=== PATIENT | male | born 1980 | race Two or more races ===

== ENCOUNTER 2020-04-01 15:40 | Outpatient (REF) | payer OTHER, SELFPAY | END 2020-04-01 15:41 | disposition home or self-care (01) | LOC: HO.LAB 15:40 | PROVIDERS: Visit Provider Internal Medicine | DX: Z20.828 Contact with and (suspected) exposure to other viral communicable diseases (principal) | CPT/HCPCS: C9803; U0003 ==

== ENCOUNTER 2021-02-28 09:36 | Emergency (ER) | payer OTHER, SELFPAY ==
[2021-02-28 11:03] VITALS: BP 127/83; PULSE 89; RESP 18; TEMP 36.1; O2SAT 98; BMI 28.2
--- NOTE | 2021-02-28 11:42 | ED.GENADULT ---
HPI - General Adult General Chief complaint: General Medical Stated complaint: face numbness/head pain Time Seen by Provider: 02/28/21 11:32 Source: patient History of Present Illness HPI narrative: Patient complaining of right facial numbness over the past several days with facial weakness starting yesterday. She denies extremity symptoms. No vision changes He complains of some posterior headache. No fevers or chills. No tick bites or exposures or high risk that he is aware of. 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 No prior history of similar issues. He looked it up online and is concerned for Sanders's palsy versus stroke. Related Data Previous Rx's Medication Instructions Recorded prednisone 20 mg tablet 40 mg PO DAILY #14 tab 02/28/21 valacyclovir 1 gram tablet 1,000 mg PO TID #21 tab 02/28/21 Allergies Allergy/AdvReac Type Severity Reaction Status Date / Time No Known Allergies Allergy Unverified 12/31/19 19:27 [No Known Allergies*] Review of Systems Constitutional: Constitutional: Denies fever(s) Eyes: Comments: No eye pain or vision changes ENT: Comments: Facial numbness as mentioned above Cardiovascular: Comments: No chest pain or palpitations Respiratory: Comments: No cough shortness of breath Gastrointestinal: Comments: No abdominal pain or nausea vomiting or diarrhea Musculoskeletal: Comments: No musculoskeletal injury Integumentary/Breasts: Comments: No rash. No recent tick bite. Neurologic: Comments: Headache. Facial numbness and weakness. No extremity weakness. No balance issues. Physical Exam Vital Signs: Vital Signs: Last Vital Signs Temp 97 F 02/28/21 11:03 Pulse 89 02/28/21 11:03 Resp 18 02/28/21 11:03 BP 127/83 02/28/21 11:03 Pulse Ox 98 02/28/21 11:03 Body Mass Index 28.2 Const: Other: Awake alert no acute distress HENMT: Other: Normal cephalic atraumatic. No swelling erythema or induration. No dental tenderness Eyes: Other: Pupils equal round reactive to light. No nystagmus. Vision grossly intact Neck: Other: No meningismus Resp: Other: Clear and equal bilaterally without wheezes rales or rhonchi Cardio: Other: Regular rate and rhythm without murmurs rubs or gallops GI: Other: Soft nontender nondistended Skin: Other: No rash noted Neuro: Other: Awake and alert no acute distress. Cranial nerve 7 palsy with facial droop. Forehead is involved on the right side. He is able to close the right eyelid but with effort. Remainder of cranial nerves are normal. 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 Treat with prednisone. General labs ordered including Lyme titer Will treat empirically with steroids and acyclovir for discharge home. Follow-up with PCP Will alert if Lyme titers are abnormal Discharge Plan Discharge Clinical Impression: Sanders palsy Patient Disposition: Home, Self-Care Instructions: Sanders Palsy (ED) Prescriptions: New prednisone 20 mg tablet 40 mg PO DAILY Qty: 14 RF: 0 valacyclovir 1 gram tablet 1,000 mg PO TID Qty: 21 RF: 0 Stand Alone Forms: Work/School Release
[2021-02-28 12:00] VITALS: BP 115/77; PULSE 83; RESP 16; TEMP 36.7; O2SAT 95
[2021-02-28] MEDS: predniSONE 20 MG TABLET 60 MG PO (12:02)
[2021-02-28 12:14] LABS: MANUAL DIFF FLAG NO
[2021-02-28 12:17] LABS: Basophils Percent Auto 0.3 % (0-2); Eosinophils Absolute Auto 0.2 X10*3/uL (0.0-0.4); Eosinophils Percent Auto 2.3 % (0-4); Hemoglobin 13.9 g/dl (14.0-18.0); Imm Gran Abs Auto 0.03 X10*3/uL (0.00-0.03); Imm Gran Pct Auto 0.3 % (0.0-0.4); Lymphocytes Absolute Auto 3.4 X10*3/uL (1.2-4.9); Lymphocytes Percent Auto 38.9 % (20-40); Mean Corpuscular HGB Conc 34.8 g/dl (31.0-36.0); Mean Corpuscular Hemoglobin 29.4 pg (27.0-33.0); Mean Corpuscular Volume 84.6 fL (80.0-98.0); Mean Platelet Volume 9.1 fL (9.4-12.4); Monocytes Absolute Auto 0.6 X10*3/uL (0.1-1.2); Monocytes Percent Auto 6.8 % (2-11); Neutrophils Absolute Auto 4.4 x10*3/uL (2.0-8.3); Neutrophils Percent Auto 51.4 % (45-73); Platelet Count 353 X10*3/uL (160-400); Red Blood Count 4.73 X10*6/uL (4.60-5.80); Red Cell Distribution Width 13.4 % (11.0-16.0); White Blood Count 8.6 X10*3/uL (4.8-10.8)
[2021-02-28 12:34] LABS: Alanine Aminotransferase 23 U/L (0-40); Albumin Level 4.1 g/dL (3.5-5.0); Alkaline Phosphatase 174 U/L (39-117); Anion Gap 10 (12-20); Aspartate Amino Transferase 16 U/L (5-37); Bilirubin Total 0.2 mg/dL (0.0-1.0); Blood Urea Nitrogen 12 mg/dL (9-16); Calcium 8.9 mg/dL (8.4-10.2); Carbon Dioxide 23 mmol/L (22-29); Chloride 108 mmol/L (96-108); Creatinine Clr Calc Pharmacy 128.3; Estimated Glomerular Filt Rate > 60; Glucose Random 99 mg/dL (60-115); Potassium 4.2 mmol/L (3.3-5.1); Sodium 137 mmol/L (135-145); Total Protein 7.1 g/dL (6.5-8.0)
[2021-03-01 13:07] LABS: Lyme Abs Screen <0.90 index
== END 2021-02-28 12:07 | disposition home or self-care (01) ==
LOC: HO.ED 11:57
PROVIDERS: Emergency Provider Emergency Medicine
DX: G51.0 Bell's palsy (principal); R20.0 Anesthesia of skin; Z79.899 Other long term (current) drug therapy
CPT/HCPCS: 36415; 80053; 85025; 86617; 86618; 99283; 99284

== ENCOUNTER 2022-02-13 07:29 | Emergency (ER) | payer SELFPAY ==
--- NOTE | ~2022-02-13 | XR_ITS ---
EXAMINATION: XR HAND, RIGHT CLINICAL INFORMATION: Fifth digit crush injury. COMPARISON: None TECHNIQUE: PA, lateral, and oblique views of the right hand. An indicator arrow points to the fifth digit. FINDINGS: The bones and soft tissues are normal. No fracture. Alignment is anatomic. Joint spaces are maintained. No erosions or soft tissue calcifications. XR/XR hand RT min 3V IMPRESSION: No acute fracture. Specifically, the fifth digit is intact.
[2022-02-13 07:30] VITALS: BP 127/84; PULSE 98; RESP 17; TEMP 36.6; O2SAT 98; BMI 27.4
--- NOTE | 2022-02-13 08:05 | ED_ITS ---
HPI - Wound/Laceration General Chief Complaint: Wound/Laceration Stated Complaint: broken finger, R hand Time Seen by Provider: 02/13/22 08:04 Source: patient Mode of arrival: ambulatory History of Present Illness HPI narrative: 41-year-old male with no significant past medical history presenting to the ED complaining right hand laceration s/p crush injury while working on a garage door at 06:00. States was working a neri system when garage door fell landing on hand. Denies numbness, tingling, weakness, injury to other area. Tetanus up-to-date Onset (ago): hour(s) Related Data Previous Rx's Medication Instructions Recorded prednisone 20 mg tablet 40 mg PO DAILY #14 tabs 02/28/21 valacyclovir 1 gram tablet 1,000 mg PO TID #21 tabs 02/28/21 Allergies Allergy/AdvReac Type Severity Reaction Status Date / Time No Known Allergies Allergy Unverified 12/31/19 19:27 [No Known Allergies*] Review of Systems Review of Systems: Constitutional:No Fever, No Chills ENT/Mouth: No Ear Pain, No Nasal Congestion, No sore throat, No Rhinorrhea, No Swallowing Difficulty Cardiovascular: No Chest Pain, No SOB Respiratory: No Cough, No Sputum Gastrointestinal: No Nausea, No Vomiting, No Diarrhea, No Constipation, No A bdominal pain Genitourinary: No Dysuria, No Urinary Frequency, No Hematuria, No Flank Pain Musculoskeletal: No joint pain, No Myalgias, No Joint Swelling Skin: + Skin Lesions, No rash Neuro: No Weakness, No Numbness, No Paresthesias Yes all other systems are reviewed and are negative Constitutional: Constitutional: Reports as per HPI Neurologic: Denies Sensory deficit (Neuro) [facility] Past Medical History Attestation statement: The following information was validated with the patient. Social History Social History Patient Tobacco Use Status: Current everyday Tobacco user Advance Directives: No Advance Directives Information Provided: No Physical Exam Vital Signs: Vital Signs: Last Vital Signs Temp 98 F 02/13/22 07:30 Pulse 98 02/13/22 07:30 Resp 17 02/13/22 07:30 BP 127/84 02/13/22 07:30 Pulse Ox 98 02/13/22 07:30 BMI result Body Mass Index 27.4 Const: General: cooperative, healthy appearing and no acute distress Orientation/consciousness: patient oriented x3 Limitations: no limitations HEENT: Head: Yes normal to inspection and Yes atraumatic Ears: hearing grossly normal bilaterally General nose exam: Normal external nose present Face and sinus: Yes normal facial exam Eyes: General: appearance normal, both eyes and all related structures EOM: EOMs intact bilaterally Neck: Neck: Yes normal visual inspection and Yes no meningeal signs Resp: Effort & Inspection: normal respiratory effort and no respiratory distress Auscultation: clear to auscultation bilaterally Cardio: Rate: regular rate Heart sounds: S1 normal heart sound present and S2 normal heart sound present Skin: Other: Please refer to image above. Superficial laceration noted to 4th digit palmar aspect and 3.5cm irregular deep laceration noted to 5th digit palmar aspect overlying PIP. Bleeding controlled. No underlying structures visible. Full range of motion intact to all digits. Sensation intact to light touch Rashes: no rashes Neuro: General: patient oriented x3, tone normal and no meningeal signs Gait exam (Neuro): Normal gait present Sensory Exam: No Sensory deficit (Neuro) MDM - Wound/Laceration MDM Narrative Medical decision making narrative: 41-year-old male with no significant past medical history presenting to the ED complaining right hand laceration s/p crush injury while working on a garage door at 06:00. On exam vital signs stable, NAD, nontoxic appearing, physical exam as above, please refer to image. No evidence of infection at this time. No evidence of tendon rupture. Plan: X-ray to rule fracture hyper laceration Differential Diagnosis Differential diagnosis: Likely laceration Medical Records Attestation: I reviewed the patient's medical records. Lab Data Attestation: I reviewed the patient's lab results. Procedures Laceration Laceration 1: Site: hand Side (If applicable): right Size (cm): 3.5 Description: irregular Depth: simple, single layer Local Anesthetic: lidocaine 1% Amount of anesthesia used (mL): 3 Pre-repair: wound explored, irrigated extensively and deep structures intact Skin layer closed with: nylon Size (cm): 4-0 Number of sutures: 9 Technique: simple, interrupted Discharge Plan Discharge Clinical Impression: Hand laceration Patient Disposition: Home, Self-Care Instructions: Laceration (ED) Additional Instructions: Your wounds were repaired today in the emergency department. Keep dry and clean. You need to return to any emergency department or urgent care in 7-10 days for suture removal Apply bacitracin and or Neosporin daily Once sutures are removed apply anti scar cream like Mederma If area begins look infected, is red, there is drainage, streaking, or you have fever please return to the emergency department Prescriptions: No Action prednisone 20 mg tablet 40 mg PO DAILY Qty: 14 0RF valacyclovir 1 gram tablet 1,000 mg PO TID Qty: 21 0RF Referrals: ED Physician,Generic [Physician] - 1 week (7-10 days to have sutures removed) Stand Alone Forms: Work/School Release
[2022-02-13] MEDS: Lidocaine HCl 1 % MPF 2 ML VIAL INFILTRATI ×2 (08:58)
[2022-02-13] MEDS: oxyCODONE HCl Immed Release 5 MG TABLET PO (08:58)
== END 2022-02-13 10:41 | disposition home or self-care (01) ==
PROVIDERS: Emergency Provider Emergency Medicine
DX: S61.411A Laceration without foreign body of right hand, initial encounter (principal); W23.0XXA Caught, crushed, jammed, or pinched between moving objects, initial encounter; Y93.89 Activity, other specified; Y92.015 Private garage of single-family (private) house as the place of occurrence of the external cause; Y99.8 Other external cause status
CPT/HCPCS: 12042; 73130; 99283; 99284

== ENCOUNTER 2022-02-20 06:33 | Emergency (ER) | payer SELFPAY ==
[2022-02-20 06:57] VITALS: BP 109/74; PULSE 73; RESP 16; TEMP 36.2; O2SAT 97; BMI 27.4
--- NOTE | 2022-02-20 08:10 | ED_ITS ---
HPI - General Adult General Chief complaint: General Medical Stated complaint: suture removal Time Seen by Provider: 02/20/22 07:32 History of Present Illness HPI narrative: Patient is a 42-year-old male presented today with having laceration to the left pinky near the proximal IP joint approximately 1 week ago. Told to come in today for suture removal. Patient denies any fever chills any systemic complaints. Patient is from home. Related Data Previous Rx's Medication Instructions Recorded prednisone 20 mg tablet 40 mg PO DAILY #14 tabs 02/28/21 valacyclovir 1 gram tablet 1,000 mg PO TID #21 tabs 02/28/21 Allergies Allergy/AdvReac Type Severity Reaction Status Date / Time No Known Allergies Allergy Unverified 12/31/19 19:27 [No Known Allergies*] Review of Systems Review of Systems: No fever no chills no chest pain or shortness breath no nausea no vomiting no redness Yes all other systems are reviewed and are negative [facility] Past Medical History Attestation statement: The following information was validated with the patient. Social History Social History Patient Tobacco Use Status: Current everyday Tobacco user Advance Directives: No Advance Directives Information Provided: Yes Physical Exam ED Vital Signs: Vital Signs - 24 hr 02/20/22 06:57 Temperature 97.1 F Pulse Rate 73 Respiratory Rate 16 Blood Pressure 109/74 Pulse Oximetry 97 Oxygen Delivery Method Room Air BMI result Body Mass Index 27.4 Appearance: Alert. Oriented X3. No acute distress. Eyes: Pupils equal, round and reactive to light. ENT: Pharynx normal. Neck: Normal inspection. Neck supple. No lymph nodes noted. No crepitus CVS: Normal heart rate and rhythm. Pulses normal. Normal S1 and S2 Respiratory: No respiratory distress. Breath sounds normal. No Wheezing. No rales Abdomen: Soft and nontender. No rigidity. No distention. good BS x4 Skin: Skin warm and dry. Normal skin color. Normal skin turgor. Extremities: No lower extremity edema. Neurovascular intact to all extremities. No Lacerations. No Rash Neuro: Oriented X 3. No motor deficit. No sensory deficit. Moving all extermities. No slurred speech Examination of the left hand showed the wound to be intact. The suture aligned. There is no redness there is no discharge. Medical Decision Making MDM Narrative Medical decision making narrative: Sutures were removed. There is no complications. Patient is to be discharged home Discharge Plan Discharge Clinical Impression: Visit for suture removal Patient Disposition: Home, Self-Care Instructions: Stitches Removal (ED) Prescriptions: No Action prednisone 20 mg tablet 40 mg PO DAILY Qty: 14 0RF valacyclovir 1 gram tablet 1,000 mg PO TID Qty: 21 0RF Referrals: Physician,None [Primary Care Provider] - (Follow-up as needed. Please keep the wounds clean.)
== END 2022-02-20 08:30 | disposition home or self-care (01) ==
PROVIDERS: Emergency Provider Emergency Medicine Emergency Medical Services
DX: Z48.02 Encounter for removal of sutures (principal); S61.217D Laceration without foreign body of left little finger without damage to nail, subsequent encounter; X58.XXXD Exposure to other specified factors, subsequent encounter
CPT/HCPCS: 99281; 99283

== ENCOUNTER 2022-11-20 06:28 | Outpatient (REF) | payer OTHER, SELFPAY ==
[2022-11-20 06:39] LABS: MANUAL DIFF FLAG NO
[2022-11-20 07:12] LABS: Basophils Percent Auto 0.5 % (0-2); Eosinophils Absolute Auto 0.2 X10*3/uL (0.0-0.4); Eosinophils Percent Auto 2.4 % (0-4); Hematocrit 45.5 % (42.0-52.0); Hemoglobin 15.5 g/dl (14.0-18.0); Imm Gran Abs Auto 0.05 X10*3/uL (0.00-0.03); Imm Gran Pct Auto 0.6 % (0.0-0.4); Lymphocytes Absolute Auto 2.4 X10*3/uL (1.2-4.9); Lymphocytes Percent Auto 29.9 % (20-40); Mean Corpuscular HGB Conc 34.1 g/dl (31.0-36.0); Mean Corpuscular Hemoglobin 28.4 pg (27.0-33.0); Mean Corpuscular Volume 83.5 fL (80.0-98.0); Mean Platelet Volume 8.6 fL (9.4-12.4); Monocytes Absolute Auto 0.5 X10*3/uL (0.1-1.2); Monocytes Percent Auto 6.7 % (2-11); Neutrophils Absolute Auto 4.7 x10*3/uL (2.0-8.3); Neutrophils Percent Auto 59.9 % (45-73); Platelet Count 337 X10*3/uL (160-400); Red Blood Count 5.45 X10*6/uL (4.60-5.80); Red Cell Distribution Width 13.2 % (11.0-16.0); White Blood Count 7.9 X10*3/uL (4.8-10.8)
[2022-11-20 07:48] LABS: Alanine Aminotransferase 19 U/L (0-40); Albumin Level 4.2 g/dL (3.5-5.0); Alkaline Phosphatase 181 U/L (39-117); Anion Gap 12 (12-20); Aspartate Amino Transferase 15 U/L (5-37); Bilirubin Total 0.4 mg/dL (0.0-1.0); Blood Urea Nitrogen 10 mg/dL (9-16); Calcium 9.2 mg/dL (8.4-10.2); Carbon Dioxide 25 mmol/L (22-29); Chloride 109 mmol/L (96-108); Cholesterol 235 mg/dL; Estimated Glomerular Filt Rate > 60; Glucose Random 107 mg/dL (60-115); HDL Cholesterol 31 mg/dL; LDL Cholesterol Calculated 158 mg/dl; Potassium 4.5 mmol/L (3.3-5.1); Sodium 141 mmol/L (135-145); Total Protein 7.9 g/dL (6.5-8.0); Triglycerides 233 mg/dL
[2022-11-20 08:05] LABS: Thyroid Stimulating Hormone 1.27 uIU/mL (0.32-4.0)
[2022-11-22 15:47] LABS: HCV Log PCR <1.18 NOT DETECTED Log IU/mL (NOT DETECTED); HepC Viral Load <15 NOT DETECTED IU/mL (NOT DETECTED)
== END 2022-11-20 06:29 | disposition home or self-care (01) ==
LOC: HO.LAB 06:28
PROVIDERS: PCP Internal Medicine; Visit Provider Internal Medicine
DX: Z00.00 Encounter for general adult medical examination without abnormal findings (principal); R63.5 Abnormal weight gain; R10.11 Right upper quadrant pain; M51.16 Intervertebral disc disorders with radiculopathy, lumbar region; K21.9 Gastro-esophageal reflux disease without esophagitis; B18.2 Chronic viral hepatitis C; F17.200 Nicotine dependence, unspecified, uncomplicated
CPT/HCPCS: 36415; 80053; 80061; 84443; 85025; 87522

== ENCOUNTER 2022-11-23 07:34 | Outpatient (REF) | payer OTHER, SELFPAY ==
--- NOTE | ~2022-11-23 | US_ITS ---
EXAMINATION: US ABDOMEN COMPLETE CLINICAL INFORMATION: Right upper quadrant pain. COMPARISON: Ultrasound abdomen 09/30/2019. TECHNIQUE: Real-time imaging of the abdominal viscera. FINDINGS: PANCREAS: The pancreas could not be evaluated secondary to overlying bowel gas. ABDOMINAL AORTA: The proximal, mid, and distal segments are normal in caliber. INFERIOR VENA CAVA: Visualized portions are normal. LIVER: The liver is enlarged with increased echogenicity consistent with hepatic steatosis. Focal areas of fatty sparing are noted. The liver contour is normal. No suspicious focal hepatic lesion. There is no intrahepatic biliary duct dilatation seen. GALLBLADDER: Normal. The gallbladder is physiologically distended without evidence of stones, sludge, polyps, wall thickening or pericholecystic fluid. COMMON BILE DUCT: Normal in caliber measuring 0.2 cm in diameter. RIGHT KIDNEY: Normal. No hydronephrosis. No renal calculi or focal parenchymal lesions. The kidney measures 10.1 cm in maximum dimension. LEFT KIDNEY: Normal. No hydronephrosis. No renal calculi or focal parenchymal lesions. The kidney measures 11.1 cm in maximum dimension. SPLEEN: Normal. The spleen measures 7.3 cm in maximum dimension. FREE FLUID: None. US/US abdomen complete IMPRESSION: Enlarged fatty liver.
== END 2022-11-23 07:35 | disposition home or self-care (01) ==
LOC: HO.US 07:34
PROVIDERS: Visit Provider Internal Medicine
DX: R10.11 Right upper quadrant pain (principal); B18.2 Chronic viral hepatitis C
CPT/HCPCS: 76700

== ENCOUNTER 2022-12-31 16:39 | Outpatient (REF) | payer OTHER, SELFPAY ==
[2023-01-01 04:49] LABS: Syphilis Screen Reactive (Nonreactive)
[2023-01-01 05:04] LABS: HIV AB/AG Nonreactive (Nonreactive); HIV Num 1 0.09 S/CO (0.00-0.99)
[2023-01-01 11:14] LABS: CT PCR NOT DETECTED (Not Detect.); NG PCR NOT DETECTED (Not Detect.)
[2023-01-06 14:42] LABS: RPR Quantitative Non-Reactive (Nonreactive); T.Pallidum Particle Agg Test Reactive (Nonreactive)
== END 2022-12-31 16:40 | disposition home or self-care (01) ==
LOC: HO.LAB 16:39
PROVIDERS: PCP Internal Medicine; Visit Provider Internal Medicine
DX: B18.2 Chronic viral hepatitis C (principal); E78.2 Mixed hyperlipidemia; F17.200 Nicotine dependence, unspecified, uncomplicated; K76.0 Fatty (change of) liver, not elsewhere classified; Z11.3 Encounter for screening for infections with a predominantly sexual mode of transmission
CPT/HCPCS: 0353U; 36415; 86592; 86780; 87389

== ENCOUNTER 2023-04-18 05:36 | Emergency (ER) | payer OTHER, SELFPAY ==
[2023-04-18 06:01] VITALS: BP 103/70; PULSE 102; RESP 18; TEMP 36.8; O2SAT 94; BMI 27.8
--- NOTE | 2023-04-18 07:59 | ED.URI ---
HPI - URI/Sore Throat General Chief Complaint: Upper Respiratory Symptoms Stated Complaint: Cough/Eye issue Time Seen by Provider: 04/18/23 07:40 Source: patient and pigs feet cleaner Mode of arrival: ambulatory History of Present Illness HPI Narrative: 43-year-old male has had 3 days of cough congestion sore throat but denies fevers or chills. Also has bilateral red eyes. Related Data Previous Rx's Medication Instructions Recorded prednisone 20 mg tablet 40 mg (2 x 20 mg) PO DAILY #14 tabs 02/28/21 valacyclovir 1 gram tablet 1,000 mg PO TID #21 tabs 02/28/21 Allergies Allergy/AdvReac Type Severity Reaction Status Date / Time No Known Allergies Allergy Verified 04/18/23 06:05 [No Known Allergies*] Review of Systems Review of Systems: Pertinent positives and negatives as stated in [facility] Past Medical History Source: nursing notes reviewed Onset Date is defined in the Problem List Problems that require an onset date and time if occurred within 24 hrs of arrival to the ED Aortic Dissection and Rupture; Neurologic impairment; Cardiopulmonary Arrest; Endotracheal Intubation; Insertion or Replacement of Mechanical Circulatory Assist Device Social History Social History Patient Tobacco Use Status: Current everyday Tobacco user Advance Directives: No Advance Directives Information Provided: No Physical Exam Vital Signs: Vital Signs: Last Vital Signs Temp 98.2 F 04/18/23 06:01 Pulse 102 H 04/18/23 06:01 Resp 18 04/18/23 06:01 BP 103/70 04/18/23 06:01 Pulse Ox 94 04/18/23 06:01 O2 Del Method Room Air 04/18/23 06:01 BMI result Body Mass Index 27.8 VITAL SIGNS: Reviewed. GENERAL: Well developed, well nourished, in no acute distress. HEAD: Normocephalic/atraumatic EYES: PERRLA, EOMI, bilateral conjunctival injection EARS: Ext canals without abnormality, TMs non-bulging and non-erythematous NOSE: Nares patent bilateral OROPHARYNX: no oral lesions noted, posterior pharynx clear and non-erythematous without noted tonsillar enlargement/erythema/exudates NECK: Supple, no adenopathy LUNGS: Normal breath sounds. No adventitious sounds or accessory muscle use. SpO2<94> CARDIOVASCULAR: Regular rate and rhythm without noted murmurs ABDOMEN: Soft, non-tender, non-distended with bowel sounds. MUSCULOSKELETAL: No tenderness, deformities, or effusions noted on gross inspection. EXTREMITIES: No cyanosis, clubbing or edema. SKIN: Inspection of the skin reveals no rashes NEUROLOGIC: Alert and oriented x 4. Strength and sensation to light touch were grossly intact x 4. Medical Decision Making Medical Decision Making [facility] Narrative: 43-year-old male with history and clinical presentation suspicious for like orally viral infection: RSV, influenza, COVID I reviewed all investigations and bowel testing is negative. Differential Diagnosis Differential Diagnoses: The differential diagnosis associated with the presentation includes Please see the discussion above Admission/Observation Consideration of admission/observation: Escalation of care including admission/observation considered Please see the discussion above Lab Data [facility] Lab Attestation statement: I reviewed the patient's lab results. Please see the discussion above Labs: Lab Results 04/18/23 Range/Units 06:14 Influenza Type A (PCR) NEGATIVE (Negative) Influenza Type B (PCR) NEGATIVE (Negative) RSV RNA Qual (PCR) NEGATIVE (Negative) SARS-CoV-2 RNA (RT-PCR) NEGATIVE (Negative) S. pyogenes GrpA SATYA Negative (Negative) Discharge Plan Discharge Clinical Impression: Upper respiratory infection, Viral infection Patient Disposition: Home, Self-Care Instructions: Upper Respiratory Infection (ED), Viral Syndrome (ED) Additional Instructions: 1. Se recomienda continuar con Tylenol e ibuprofeno para las molestias en la pared tor?cica y los emmy de himanshu. Recomiende probar otras marcas de medicamentos para la tos para controlar la tos. Tambi?n use gotas para los ojos para el enrojecimiento de los ojos. 2. Seguimiento con m?dico de atenci?n primaria. Regrese a la martin de emergencias si los s?ntomas empeoran. 1. Recommend continuing with Tylenol and ibuprofen for chest wall discomfort, headaches. Recommend trying other brands of cough medication for cough control. Also use eyedrops for your eye redness. 2. Follow-up with primary care doctor. Return to the ER for any worsening symptoms. Prescriptions: No Action prednisone 20 mg tablet 40 mg PO DAILY Qty: 14 0RF valacyclovir 1 gram tablet 1,000 mg PO TID Qty: 21 0RF Referrals: Celina Hubbard MD [Primary Care Provider] - Stand Alone Forms: Work/School Release Print Language: Yoruba
== END 2023-04-18 08:25 | disposition home or self-care (01) ==
PROVIDERS: Emergency Provider Student in an Organized Health Care Education/Training Program; PCP Internal Medicine
DX: J06.9 Acute upper respiratory infection, unspecified (principal); B34.9 Viral infection, unspecified; R05.9 Cough, unspecified; J02.9 Acute pharyngitis, unspecified; Z20.822 Contact with and (suspected) exposure to COVID-19; Z20.828 Contact with and (suspected) exposure to other viral communicable diseases
CPT/HCPCS: 0241U; 87651; 99283

== ENCOUNTER 2023-05-14 10:12 | Outpatient (REF) | payer OTHER, SELFPAY ==
[2023-05-14 10:54] LABS: Prothrombin Time 11.8 SEC (11.1-13.3)
[2023-05-14 11:24] LABS: Alanine Aminotransferase 20 U/L (0-40); Albumin Level 4.4 g/dL (3.5-5.0); Alkaline Phosphatase 193 U/L (39-117); Aspartate Amino Transferase 17 U/L (5-37); Bilirubin Direct 0.1 mg/dL (0.0-0.5); Bilirubin Total 0.4 mg/dL (0.0-1.0); Iron 55 mcg/dL (45-160); Percent Iron Saturation 19 % (15-50); Total Iron Binding Capacity 285 mcg/dL (228-428); Total Protein 8.3 g/dL (6.5-8.0); Unsaturated Iron Binding 230 ug/dL
[2023-05-14 11:33] LABS: HBS Num1 0.99 mIU/mL (0-7.99); HBc Num1 0.07 S/CO (0.00-0.79); HBsAGNum1 0.32 S/CO (0.00-0.99); Hepatitis B Core Antibody Nonreactive (Nonreactive); Hepatitis B Surface Antigen Negative (Negative); ~Hepatitis B Surface Antibody NONREACTIVE (Nonreactive)
[2023-05-14 11:41] LABS: Ferritin 286 ng/mL (20-250); Gamma Glutamyl Transpeptidase 48 U/L (11-51)
[2023-05-16 18:34] LABS: Alpha 1 Anti-trypsin 155 mg/dL (83-199); Ceruloplasmin 33 mg/dL (18-36)
[2023-05-19 08:44] LABS: Anti Nuclear Antibody Screen NEGATIVE (NEGATIVE)
[2023-05-19 11:59] LABS: Smooth Muscle Antibody <20 U (<20)
[2023-05-20 15:23] LABS: Mitochondrial Antibodies NEGATIVE (NEGATIVE)
[2023-05-21 14:18] LABS: FIB-ALT 17 U/L (9-46); FIB-Alpha-2-Macroglobulin 154 mg/dL (106-279); FIB-Apolipoprotein A1 128 mg/dL (94-176); FIB-GGT 34 U/L (3-95); FIB-Haptoglobin 349 mg/dL (43-212); FIB-Total Bilirubin 0.3 mg/dL (0.2-1.2); Liver Fibrosis Score 0.07; Liver Fibrosis Stage F0; Nec Inflam Act Grade A0; Nec Inflam Act Score 0.04
== END 2023-05-14 10:13 | disposition home or self-care (01) ==
LOC: HO.LAB 10:12
PROVIDERS: PCP Internal Medicine; Visit Provider Internal Medicine
DX: K76.0 Fatty (change of) liver, not elsewhere classified (principal); R79.89 Other specified abnormal findings of blood chemistry
CPT/HCPCS: 36415; 80076; 81596; 82103; 82390; 82728; 82977; 83540; 85610; 86015; 86038; 86381; 86704; 86706; 87340

== ENCOUNTER 2023-06-26 10:56 | Outpatient (AMB) | payer OTHER, SELFPAY ==
--- NOTE | 2023-06-26 10:57 | A.OFFPC_ITS ---
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 Investigator Required: No Allergies No Known Allergies [No Known Allergies*] Allergy (Verified 06/26/23 11:17) Medication List - Last Reconciled 06/26/23 by Sivan Guerra, NIGHT TIME NANNY- prednisone 40 mg (2 x 20 mg) PO DAILY valacyclovir 1,000 mg PO TID Tobacco use date assessed: 06/26/23 Dental Screening Dental Screen Date: 06/26/23 Did you have a dental visit in the last 12 months?: No Did you have a dental problem in the last 6 months where you did not have access to dental care?: No HPI HPI Comments History of Present Illness Details 43-year-old, Swedish-speaking male with current tobacco use, Sanders's palsy, hepatic steatosis (abdominal ultrasound 11/23/2022), syphilis December 2022, hepatitis-C Specialists GI Dr. Guerrero Health Maintenance: Vaccines UTD on Tdap and Flu Labs 11/20/2022 showed normal CBC, elevated alk phos 181, hyperlipidemia Labs 05/14/2023 elevated alk-phos 193, elevated liver haptoglobin 349, elevated total protein 8.3, elevated ferritin at 286, normal PT INR Paranormal Investigator [id number] via video Here today today to est care & for CPE Very limited medical records available for me to review prior to today's visit. Close f/u with GI Dr Guerrero for Hep C, August 07 2023 EGD lots of gas pain and upper abd pain No etoh. Regular diet. [facility] Social History Housing: House Patient Tobacco Use Status: Current everyday Tobacco user Cigarette Packs Per Day: 1 service: No Current occupational status: employed Cognitive needs: No Hearing needs: No Vision needs: No Questionnaire PHQ-9 Over the last 2 weeks, how often have you been bothered by any of the following problems? 1. Little interest or pleasure in doing things: not at all 2. Feeling down, depressed, or hopeless: not at all 3. Trouble falling or staying asleep, or sleeping too much: not at all 4. Feeling tired or having little energy: not at all 5. Poor appetite or overeating: not at all 6. Feeling bad about yourself - or that you are a failure or have let yourself or your family down: not at all 7. Trouble concentrating on things, such as reading the newspaper or watching television: not at all 8. Moving or speaking so slowly that other people could have noticed. Or the opposite - being so fidgety or restless that you have been moving around a lot more than usual: not at all 9. Thoughts that you would be better off or of hurting yourself in some way: not at all Total score: 0 Depression Screening Interpretation: Negative Depression Screening Done: Yes 18925 - PHQ-9 Billing: Yes Source: Developed by Drs. Caio Gonzalez, Maria Luisa Meyer, Asher Kimble and colleagues, with an educational mariam from [employer]. Thrive Questionnaire Date Thrive assessed: 06/26/23 I am a: Patient What is your living situation today?: I have a steady place to live Within the past 12 months, did the food you bought not last and you didn't have the money to get more?: Never true Within the past 12 months, did you worry whether your food would run out before you got money to buy more?: Never true Do you have trouble paying for medicines?: No Do you have trouble getting transportation to medical appointments?: No Do you have trouble paying your heating and electricity bill?: No Do you have trouble taking care of your child, family member or friend?: No Do you have trouble with day-to-day activities such as bathing, preparing meals, shopping, managing finances, etc.?: No Are you currently unemployed and looking for a job?: No Are you interested in more education?: No Please select the resources that you would like help with: None Currently or been in a relationship where the following occur: no concerns reported THRIVE Score: 0 AUDIT C Alcohol Use Questionnaire (AUDIT-C) 1. How often do you have a drink containing alcohol?: Never 2. How many drinks containing alcohol do you have on a typical day when you are drinking?: 1 or 2 (0) 3. How often do you have six or more drinks on one occasion?: Never Total Score: 0 Score Reviewed/Action Taken: Yes MILVIA-7 AMB Questionnaire MILVIA-7 Date MILVIA - 7 assessed: 06/26/23 Feeling nervous, anxious, or on edge: 0 = Not at all Not being able to stop or control worryin = Not at all Worrying too much about different things: 0 = Not at all Trouble relaxin = Not at all Being so restless that it is hard to sit still: 0 = Not at all Becoming easily annoyed or irritable: 0 = Not at all Feeling afraid as if something awful might happen: 0 = Not at all Total MILVIA-7 score (0-4 normal; 5-9 mild; 10-14 moderate; 15-21 severe): 0 Source: Developed by Drs. Caio Gonzalez, Maria Luisa Meyer, Asher Kimble and colleagues, with an educational mariam from [employer]. MILVIA-7 Assessment Billing MILVIA-7 Assessment Tool: MILVIA-7 Assessment 06873 Review of Systems Const Details: Constitutional: Denies fever. Skin: Denies rash. Eye: Denies eye pain. ENMT: Denies sore throat and nasal congestion. Respiratory: Denies shortness of breath and cough. Gastrointestinal: Denies nausea, vomiting Cardiovascular: Denies chest pain and syncope. Genitourinary: Denies dysuria. Musculoskeletal: Denies back pain and extremity pain. Neurologic: Denies headaches, confusion, and weakness. Psychiatric: Denies suicidal thoughts and substance abuse. Allergy/ Immunologic: Denies impaired immunity. Physical exam (Primary Care) Vital Signs: Last Vital Signs Pulse 102 H 06/26/23 10:58 BP 92/68 06/26/23 10:58 Pulse Ox 96 06/26/23 10:58 Oxygen Delivery Method Room Air 06/26/23 10:58 BMI result Body Mass Index 28.6 BMI Assessment/Plan discussion: High BMI High, discussed plan: lifestyle Tobacco/Smoking Status: Tobacco use Status Tobacco use date assessed 06/26/23 06/26/23 11:03 Patient Tobacco Use Status Current everyday Tobacco 06/26/23 11:03 Are you ready to quit: No Tobacco cessation counseling provided: Yes Items discussed: Other Relapse Prevention: discussed the importance of a supportive environment, discussed extending NRT, discussed negative mood or depression after quitting, weight gain after smoking is common and discussed dietary, exercise and/or lifestyle changes Number of minutes spent counselin CPT code: 23190 - 4-10 Minutes PHQ-9: PHQ-9 Score PHQ-9: Total score 0 06/26/23 11:27 Depression Screening Interpretation: Negative Thrive Assessment: Date of Thrive Assessment Date Thrive assessed 06/26/23 06/26/23 11:06 Currently or been in a relationship where the following occur: no concerns reported Const Other: General: Well developed, well nourished, in no acute distress. Appears stated age. Head: Normocephalic, atraumatic. Eyes: Pupils are equal, round and reactive to light and accommodation. Conjunctivae are clear. Vision grossly normal. Ears: TMs clear AU, EACS WNL Nose: Patent, without discharge. Mouth: There are no ulcers or lesions noted. No inflammation, no post nasal drip, no plaques nor exudates. Neck: Supple, no adenopathy or thyromegaly. Lungs: Dim throughout. Heart: Regular rate and rhythm. No murmurs, click, rubs or gallops are noted. Abdomen: Ascites, tympanic bowel sounds, hepatomegaly, nontender with palpation Musculoskeletal: Joints are nontender, without swelling, redness, or effusions. Range of motion is observed to be normal. Pulses: Peripheral pulses are equal and palpable bilaterally. Extremities: No clubbing, cyanosis nor edema is noted. Neurologic: Gait and station normal. Cranial Nerves 2-12 intact. Motor strength grossly symmetrical and intact. No sensory loss. Balance normal. Skin: No rashes, ulcers, or lesions noted. Turgor is good. Skin color is good. Hair and nails are without abnormalities. Psych: Normal eye contact, affect and mood appropriate, and normal interactions. Patient is alert and appropriate to context. Assessment and Plan Assessment & Plan (1) Physical exam, annual: Code(s): Z00.00 - Encounter for general adult medical examination without abnormal findings (2) Hepatitis C: Comment: Managed by Dr. Guerrero. Scheduled for an EGD 08/07/2023 Code(s): B19.20 - Unspecified viral hepatitis C without hepatic coma Qualifiers: Viral hepatitis chronicity: chronic Hepatic coma status: without hepatic coma Qualified Code(s): B18.2 - Chronic viral hepatitis C (3) Tobacco use: Comment: Advised pt stop smoking, as smoking damages our blood vessels, causes scaring of lungs, spine causing degenerative disc disease and damges the heart, it can also predispose our body to certain cancers. Recommended pt decrease cigarette use by 1 to 2 cigarettes/day. . Advised to monitor what triggers are for smoking so that this can discuss at the next office visit. When pt is ready to consider quitting smoking, we can discuss the possible use of medications. Code(s): Z72.0 - Tobacco use (4) Hepatic steatosis: Comment: Monitored & managed by Dr. Guerrero. Labs 05/14/2023 elevated alk-phos 193, elevated liver haptoglobin 349, elevated total protein 8.3, elevated ferritin at 286, normal PT INR Code(s): K76.0 - Fatty (change of) liver, not elsewhere classified Patient Instructions: Return to office in 1 year for complete physical exam. Sooner as needed. Smoking Cessation How to Quit There are a lot of ways to quit smoking and many resources to help you. Family members, friends, and co-workers may be supportive or encouraging, but to be successful the desire and commitment to quit must be your own. Most people who have been able to successfully quit smoking made at least one unsuccessful attempt in the past. Try not to view past attempts to quit as failures, but rather as learning experiences. Stopping smoking or using smokeless tobacco is difficult, but anyone can do it. Know the symptoms to expect when you stop. Common symptoms include: ? An intense craving for nicotine ? Anxiety, tension, restlessness, frustration, or impatience ? Difficulty concentrating ? Drowsiness or trouble sleeping, as well as bad dreams and nightmares ? Drowsiness and trouble sleeping ? Headaches ? Increased appetite and weight gain ? Irritability or depression How severe your symptoms are depends on how long you smoked and how many cigarettes you smoked each day. Feel ready to quit? ? First and foremost, set a quit date and quit completely on that day. Before your quit date, you may begin reducing your cigarette use. But remember, there is no safe level of cigarette smoking. ? List the reasons why you want to quit. Include both short- and long-term benefits. ? Identify the times you are most likely to smoke. For example, do you tend to smoke when feeling stressed or down? When out at night with friends? While drinking coffee or alcohol? When bored? While driving? Right after a meal or sex? During a work break? While watching TV or playing cards? When you are with other smokers? ? Let all of your friends, family, and co-workers know of your plan to stop smoking and your quit date. Just being aware that they know what you're going through can be helpful, especially when you are grumpy. ? Get rid of all your cigarettes just before the quit date, and clean out anything that smells like smoke, such as clothes and furniture. Make a plan about what you will do instead of smoking at those times when you are most likely to smoke. ? Be as specific as possible. For example, drink tea instead of coffee -- tea may not trigger the desire for a cigarette. Or, take a walk when you feel stressed. ? Remove ashtrays and cigarettes from the car. Place pretzels or hard candies there instead. Pretend-smoke with a straw. ? Find activities that focus your hands and mind but are not taxing or fattening. Computer games, solitaire, knitting, sewing, and crossword puzzles may help. ? If you normally smoke after eating, find other ways to end a meal. Play a tape or CD, eat a piece of fruit, get up and make a phone call, or take a walk (a good distraction that also black calories). Make other changes in your lifestyle. ? Change your daily schedule and habits. Eat at different times or eat several small meals instead of three large ones. Sit in a different chair or even a different room. ? Satisfy your oral habits by eating celery or other low-calorie snack, chewing sugarless gum, or sucking on a cinnamon stick. ? Go to public places and restaurants where smoking is prohibited or restricted. ? Eat regular meals and don't eat too much candy or sweet things. ? Get more exercise. Take walks or ride a bike. Exercise helps relieve the urge to smoke. Set short-term quitting goals and reward yourself when you meet them. ? Every day, put the money you normally spend on cigarettes in a jar. Then buy something pleasurable after a period of time. ? Try not to think about all the days ahead you will need to avoid smoking. Take it one day at a time. ? Even one puff or one cigarette will make your desire for more cigarettes even stronger. However, it is normal to make mistakes. So even if you have one cigarette, you don't need to take the next one. Other tips to help you quit smoking and stick to it: ? Enroll in a smoking cessation program (hospitals, health departments, community centers, and work sites often offer programs). Learn about self-hypnosis or other techniques. ? Ask your health care provider about prescription medications that are safe and appropriate for you. ? Find out about nicotine patches, gum, and sprays. The [place] [employer]'s web site -- www.cancer.org -- is an excellent resource for smokers who are trying to quit, and the [employer] [place] [employer] can help some smokers kick the habit. Above all, don't get discouraged if you aren't able to quit smoking the first time. Nicotine addiction is a hard habit to break. Try something different next time. Develop new strategies, and try again. Many people take several attempts to finally kick the habit. Coding Level of Care Code New Pt Prev Care 40-64y(53060) Diagnoses Physical exam, annual Z00.00 Chronic hepatitis C without hepatic coma B18.2 Viral hepatitis chronicity: chronic Hepatic coma status: without hepatic coma Tobacco use Z72.0 Hepatic steatosis K76.0 Additional Codes MILVIA-7 Assessment Billing - MILVIA-7 Assessment Tool: MILVIA-7 Assessment 74314 ([id number]) Vital Signs *Quality* - CPT code: 31337 - 4-10 Minutes ([id number])
[2023-06-26 10:58] VITALS: BP 92/68; PULSE 102; O2SAT 96; BMI 28.6
== END 2023-06-26 11:35 | disposition home or self-care (01) ==
PROVIDERS: PCP Nurse Practitioner Family; Visit Provider Nurse Practitioner Family
DX: Z00.00 Encounter for general adult medical examination without abnormal findings (principal); B18.2 Chronic viral hepatitis C; Z72.0 Tobacco use; K76.0 Fatty (change of) liver, not elsewhere classified
CPT/HCPCS: 99386

== ENCOUNTER 2023-08-07 09:24 | Day surgery (SDC) | payer OTHER, SELFPAY ==
[2023-08-05 13:55] VITALS: BMI 28.1
--- NOTE | 2023-08-06 10:06 | P.CONAN_ITS ---
Documented by User: Dia Logan NP 08/06/23 10:06 HPI - Anesthesia Eval Consult details Narrative: 43yo M for Upper Endoscopy [facility] Active Problems Active Problems: All Active Problems Physical exam, annual (Acute) Hepatic steatosis (Acute) Tobacco use (Acute) Hepatitis C (Acute) Past Medical History Medical History (Updated 08/06/23 @ 11:19 by Viri Krueger RN) Hepatitis C GERD (gastroesophageal reflux disease) Social History Social History Housing: House Patient Tobacco Use Status: Current everyday Tobacco user Tobacco use type: Cigarette Cigarette Packs Per Day: 1 Cigarettes Per Day: 10 Years Smoked: +20 Smoked in Last 30 Days: Yes Use of substances other than those prescribed or required for medical reasons: No Are you DNR?: No Advance Directives: No Advance Directives Information Provided: Yes Recently lost weight without trying: No How much weight loss: 2-13 pounds Eating poorly because of decreased appetite: No Nutrition screen score: 1 Nutrition Risks: No Nutritional Risk Poor oral hygiene: No service: No Current occupational status: employed Cognitive needs: No Hearing needs: No Vision needs: No Meds Allergies Allergy/AdvReac Type Severity Reaction Status Date / Time No Known Allergies Allergy Verified 06/26/23 11:17 [No Known Allergies*] Home Medications ?Medication ?Instructions ?Recorded ?Confirmed ?Last Taken ?Type No Known Home Meds 08/05/23 08/05/23 Unknown History Exam Height,Weight and Vital Signs: Height 5 ft 6 in Weight 78.925 kg Assessment and Plan Assessment Anesthesia Assessment: Chart Reviewed Documented by User: Adonis Cooper MD 08/07/23 10:49 [facility] Past Medical History Medical History (Updated 08/06/23 @ 11:19 by Viri Krueger RN) Hepatitis C GERD (gastroesophageal reflux disease) Family History Family history of problems with anesthesia: No Surgical History History of Problems with Anesthesia: No Social History Social History Housing: House Patient Tobacco Use Status: Current everyday Tobacco user Tobacco use type: Cigarette Cigarette Packs Per Day: 1 Cigarettes Per Day: 10 Years Smoked: +20 Smoked in Last 30 Days: Yes Use of substances other than those prescribed or required for medical reasons: No Are you DNR?: No Advance Directives: No Advance Directives Information Provided: Yes Recently lost weight without trying: No How much weight loss: 2-13 pounds Eating poorly because of decreased appetite: No Nutrition screen score: 1 Nutrition Risks: No Nutritional Risk Poor oral hygiene: No service: No Current occupational status: employed Cognitive needs: No Hearing needs: No Vision needs: No Meds Allergies Allergy/AdvReac Type Severity Reaction Status Date / Time No Known Allergies Allergy Verified 06/26/23 11:17 [No Known Allergies*] Home Medications ?Medication ?Instructions ?Recorded ?Confirmed ?Last Taken ?Type No Known Home Meds 08/05/23 08/05/23 Unknown History Exam Airway Mallampati Class: II TM Dist: >3cm Neck ROM: Full Partial: Upper Loose/Missing/Broken Teeth: Yes and Upper Heart: ok Lungs: ok Assessment and Plan Final Anesthetic Review Family History of Problems with Anesthesia: No History of Problems with Anesthesia: No NPO: Yes ASA Class: II Final Preanesthetic Review: No Changes in Pt Med Stat, Meds/Allgs Chart Reviewed, Consent Obtained/Reviewed and Anes Risks/Benef Reviewed Patient Risk: Low Procedure Risk: Intermediate Anesthetic Plan Anesthetic Plan: Agree w/ Assess. and Plan and TIVA Disposition: Standard PACU
--- NOTE | 2023-08-07 10:30 | PC.NURSE ---
24 hour preop assessment/30 day H+P completed by Dr Yolanda heaton paper documentation.
[2023-08-07 11:14] VITALS: BP 102/60; PULSE 93; RESP 16; TEMP 36.6; O2SAT 91
--- NOTE | 2023-08-07 11:14 | PM.OP ---
Brief Operative Note Date of Service: 08/07/23 Pre-op diagnosis: GERD Post-op diagnosis: other (Erosive esophagitis, Duodenal ulcers) Procedure: EGD with biopsies Surgeon: Caio Guerrero MD Anesthesia: MAC Was an Manager Labor Delivery used for this Procedure?: No Estimated blood loss (mL): 2.0 Pathology: other (A. Gastric antrum B. Esophagus 37-38cm) Condition: stable Disposition: PACU
[2023-08-07 11:29] VITALS: BP 109/82; PULSE 90; RESP 18; TEMP 36.6; O2SAT 95
--- NOTE | 2023-08-07 11:41 | OP_ITS ---
DATE OF SERVICE: 08/07/2023 SURGEON: Caio Guerrero MD INDICATIONS: The patient presents for evaluation of gastroesophageal reflux. Full consent has been obtained from him for this, including risks of bleeding and perforation. PREOPERATIVE DIAGNOSIS: Gastroesophageal reflux. POSTOPERATIVE DIAGNOSIS: PROCEDURE PERFORMED: Esophagogastroduodenoscopy with biopsies. ESTIMATED BLOOD LOSS: COMPLICATIONS: ANESTHESIA: Monitored anesthesia care. ASSISTANTS: SPECIMENS: POSTOPERATIVE DIAGNOSES: Gastroesophageal reflux, duodenal ulcers, erosive esophagitis, hiatal hernia, rule out Helicobacter pylori. DESCRIPTION OF PROCEDURE: The patient was placed in the left lateral decubitus position. The Olympus video gastroscope was passed in the posterior oropharynx and upper esophagus under direct vision. The scope was passed slowly to the distal esophagus. The gastroesophageal junction appeared at 38 cm. Extending from this to 37 cm, were some linear erosions. There were no ulceration nor mass. There was no gross evidence of Mccauley's mucosa. The scope entered the stomach. There was a small hiatal hernia. The scope was advanced to pylorus and the duodenum was cannulated to the descending portion. The duodenum including the bulb was carefully inspected. The duodenal bulb and 2nd portion of the duodenum had areas of erosions as well as 2 discrete ulcers in the duodenal bulb. There was no sign of any visible vessel nor bleeding. Each ulcer was approximately 8 mm in diameter. The scope was withdrawn back in the stomach. The gastric antrum and body appeared normal with good peristalsis. The scope was retroflexed visualizing the proximal stomach carefully, which appeared normal, without any sign of mass or ulceration. Biopsies were obtained from the gastric antrum. The scope was withdrawn back to the esophagus. Biopsies were obtained between 37 and 38 cm in the area of erosive esophagitis. Proximal to 37 cm, the esophageal mucosa appeared normal. The scope was withdrawn from the patient. He tolerated the procedure well and was returned to the recovery area in stable condition. IMPRESSION: 1. Erosive esophagitis. 2. Duodenal ulcers. 3. Duodenitis. 4. Small hiatal hernia. PLAN: The results of the biopsies will be checked. If H pylori is present in the gastric biopsies, I would recommend treating that. He was advised to stay off all aspirin and NSAIDs long-term. He does have a prescription for omeprazole, but has only been using it p.r.n. I have instructed him to use it daily on a long-term basis given today's findings and he will see me later in the year for a followup office visit. MD STACEY Melton/MACY / [id number] MTDD
== END 2023-08-07 12:21 | disposition home or self-care (01) ==
PROVIDERS: PCP Internal Medicine; Visit Provider Internal Medicine
PROC: 0DJ08ZZ Inspection of Upper Intestinal Tract, Via Natural or Artificial Opening Endoscopic (ICD-10-PCS; CPT 43235; principal; 2023-08-07 10:40)
DX: K21.9 Gastro-esophageal reflux disease without esophagitis (principal); K29.80 Duodenitis without bleeding; K20.80 Other esophagitis without bleeding; K26.9 Duodenal ulcer, unspecified as acute or chronic, without hemorrhage or perforation; K44.9 Diaphragmatic hernia without obstruction or gangrene; K76.0 Fatty (change of) liver, not elsewhere classified; R79.89 Other specified abnormal findings of blood chemistry; F17.210 Nicotine dependence, cigarettes, uncomplicated
CPT/HCPCS: 43239; 88305; 88313; 88342; J2704

== ENCOUNTER 2023-12-24 10:01 | Outpatient (REF) | payer OTHER, SELFPAY ==
[2023-12-24 11:48] LABS: Alanine Aminotransferase 48 U/L (0-40); Albumin Level 4.2 g/dL (3.5-5.0); Alkaline Phosphatase 161 U/L (39-117); Aspartate Amino Transferase 24 U/L (5-37); Bilirubin Direct 0.1 mg/dL (0.0-0.5); Bilirubin Total 0.4 mg/dL (0.0-1.0); Cholesterol 232 mg/dL (<200); HDL Cholesterol 32 mg/dL (>40); LDL Cholesterol Calculated 135 mg/dL (<100); Total Protein 7.5 g/dL (6.5-8.0); Triglycerides 325 mg/dL (<150)
[2023-12-24 12:06] LABS: Syphilis Screen Reactive (Nonreactive)
[2023-12-26 10:39] LABS: RPR Rapid Plasma Reagin NON-REACTIVE (NON-REACTIVE)
[2023-12-30 15:31] LABS: RPR Quantitative Non-Reactive (Nonreactive)
[2023-12-30 15:32] LABS: T.Pallidum Particle Agg Test Reactive (Nonreactive)
== END 2023-12-24 10:02 | disposition home or self-care (01) ==
LOC: HO.LAB 10:01
PROVIDERS: PCP Internal Medicine; Visit Provider Internal Medicine
DX: K76.0 Fatty (change of) liver, not elsewhere classified (principal); R79.89 Other specified abnormal findings of blood chemistry; E78.2 Mixed hyperlipidemia; Z11.3 Encounter for screening for infections with a predominantly sexual mode of transmission
CPT/HCPCS: 36415; 80061; 80076; 86592; 86780

== ENCOUNTER 2024-01-01 16:38 | Outpatient (REF) | payer OTHER, SELFPAY ==
--- NOTE | ~2024-01-01 | XR_ITS ---
EXAMINATION: XR CHEST CLINICAL INFORMATION: CHEST PAIN for 2 months, quit smoking 2 months ago. COMPARISON: 03/16/2019. TECHNIQUE: 2 views of the chest were obtained. FINDINGS: Cardiac, hilar, and mediastinal contours are normal. There is underlying COPD evident with apical blebbing and anterior blebbing. There is a calcified granuloma in the right lower lobe. Lungs otherwise clear. No consolidations, effusions, or pneumothorax. No soft tissue or osseous abnormality. XR/XR chest 2V IMPRESSION: -No active pulmonary disease. -Evidence of underlying COPD. Electronically signed by: Sergei Lopez MD 03/11/2024 02:19 PM [facility]
== END 2024-01-01 16:39 | disposition home or self-care (01) ==
LOC: HO.XRAY 16:38
PROVIDERS: PCP Internal Medicine; Visit Provider Internal Medicine
DX: R07.9 Chest pain, unspecified (principal); Z72.0 Tobacco use
CPT/HCPCS: 71046

== ENCOUNTER → 2024-01-01 16:44 | Outpatient (BNV) | payer OTHER, SELFPAY | PROVIDERS: PCP Internal Medicine; Visit Provider Radiology Diagnostic Radiology | DX: J44.9 Chronic obstructive pulmonary disease, unspecified (principal); R07.9 Chest pain, unspecified; Z87.891 Personal history of nicotine dependence | CPT/HCPCS: 71046 ==

== ENCOUNTER 2024-04-27 05:23 | Emergency (ER) | payer OTHER, SELFPAY ==
[2024-04-27 05:26] VITALS: BP 117/81; PULSE 88; RESP 16; TEMP 36.5; O2SAT 98; BMI 21.8
--- NOTE | 2024-04-27 07:49 | ED_ITS ---
HPI - Male Genitourinary General Chief complaint: Urogenital-Male Stated complaint: swollen penis Time Seen by Provider: 04/27/24 07:20 Source: patient Mode of arrival: ambulatory Limitations: no limitations History of Present Illness HPI Narrative: This is a 44 years old the patient presented to the emergency department complaining of swelling of the penis. Symptoms started on Saturday, use an aaua-glu-bciweyt cream Shaheed-JANICE (clotrimazole) that he applied and this made worse. Denies any systemic symptoms such as fever vomiting, no history of diabetes. MD Complaint: other (swelling penis) Onset (ago): day(s) (3) Duration: constant Location: penis Severity: mild Quality: aching Relieving factors: none Exacerbating factors: none Related Data Previous Rx's ?Medication ?Instructions ?Recorded levofloxacin 500 mg tablet 500 mg PO DAILY 5 days #5 tabs 04/27/24 prednisone 20 mg tablet 60 mg (3 x 20 mg) PO DAILY #12 tabs 04/27/24 Allergies Allergy/AdvReac Type Severity Reaction Status Date / Time No Known Allergies Allergy Verified 04/27/24 05:28 [No Known Allergies*] Review of Systems 2 Constitutional: Constitutional: Reports no additional constitutional complaints Cardiovascular: Cardiovascular: Reports no additional cardiovascular complaints Genitourinary: Genitourinary: Denies penile discharge, Denies scrotal swelling, Denies testicular mass and Denies urinary hesitancy [facility] Past Medical History [facility] Narrative: Denies any major medical problems denies diabetes Medical History Hepatitis C GERD (gastroesophageal reflux disease) Social History Social History Housing: House Patient Tobacco Use Status: Current everyday Tobacco user Tobacco use type: Cigarette Cigarette Packs Per Day: 1 Cigarettes Per Day: 10 Years Smoked: +20 Advance Directives: No Advance Directives Information Provided: Yes Do you have a plan to hurt others: No Plan service: No Current occupational status: employed Cognitive needs: No Hearing needs: No Vision needs: No Physical Exam 2 Vital Signs: Vital Signs: Last Vital Signs Temp 97.7 F 04/27/24 05:26 Pulse 88 04/27/24 05:26 Resp 16 04/27/24 05:26 BP 117/81 04/27/24 05:26 Pulse Ox 98 04/27/24 05:26 O2 Del Method Room Air 04/27/24 05:26 BMI result Body Mass Index 21.8 Patient looks well not acute distress Const: General: cooperative Nutritional Appearance: average body habitus Orientation/consciousness: oriented to person and patient oriented x3 HEENT: Head: Yes normal to inspection Face and sinus: Yes normal facial exam Mouth: Normal oral and palatal mucosa present Neck: Neck: Yes normal visual inspection Chest: Chest palpation & inspection: normal inspection of the chest Resp: Effort & Inspection: normal respiratory effort Auscultation: clear to auscultation bilaterally Cardio: Jugular venous distension: no JVD Rate: regular rate Rhythm: r egular rhythm GI: Inspection: Yes normal to inspection Palpation (GI): Soft to palpation : Other: picture were taken with permission of pt Swelling of the penis noted, edematous Skin: General skin exam: no rashes or lesions noted, elasticity normal and turgor normal Lesions: no lesions Rashes: no rashes Neuro: General: oriented to person and patient oriented x3 Cranial nerves: Yes CN's II-XII intact bilaterally Extrem: General: Yes normal to inspection, Yes full ROM and Yes capillary refill normal Course Reevaluation(s) Reevaluation #1: I discussed the case with the Urology Dr. Varner , patient gave me permission to take a picture which I sent in a secure airway (tiger test) to the urologist Dr. Varner okay to discharge on prednisone and antibiotic she will call the patient for follow-up Time: 08:13 Reevaluation #2: Lab normal UA normal as above discussed case with the urologist and picture reviewed with the urologist Medications Administered Discontinued Medications Generic Name Dose Route Start Last Admin Trade Name Freq PRN Reason Stop Dose Admin Hydroxyzine HCl 25 mg 04/27/24 08:13 04/27/24 08:30 Hydroxyzine Hcl 25 Mg Tablet PO 04/27/24 08:14 25 mg ONCE ONE Administration Levofloxacin 500 mg 04/27/24 08:07 04/27/24 08:30 Levofloxacin 500 Mg Tablet PO 04/27/24 08:08 500 mg ONCE ONE Administration Prednisone 60 mg 04/27/24 08:06 04/27/24 08:30 Prednisone 20 Mg Tablet PO 04/27/24 08:07 60 mg ONCE ONE Administration Medical Decision Making Medical Decision Making [facility] Narrative: Patient presented with penile swelling will check UA baseline blood work he looks to me that could be more reaction to the cream that he used. 09:11 patient remained stable I was able to retract preputium again case was discussed with Urology picture was sent to her she will follow-up closely Differential Diagnosis Differential Diagnoses: The differential diagnosis associated with the presentation includes Balanitis/UTI Admission/Observation Consideration of admission/observation: Escalation of care including admission/observation considered Consult Healthcare Provider Management of the patient was discussed with: Cotton Sampler Urologist Lab Data MDM Lab Attestation statement: I reviewed the patient's lab results. 04/27/24 07:59 04/27/24 07:59 Labs: Lab Results 04/27/24 04/27/24 Range/Units 07:59 08:00 WBC 7.2 (4.8-10.8) X10*3/uL RBC 5.35 (4.60-5.80) X10*6/uL Hgb 15.0 (14.0-18.0) g/dl Hct 43.2 (42.0-52.0) % MCV 80.7 (80.0-98.0) fL MCH 28.0 (27.0-33.0) pg MCHC 34.7 (31.0-36.0) g/dl RDW 12.9 (11.0-16.0) % Plt Count 316 (160-400) X10*3/uL MPV 8.5 L (9.4-12.4) fL Immature Gran % (Auto) 0.4 (0.0-0.4) % Neut % (Auto) 60.8 (45-73) % Lymph % (Auto) 29.1 (20-40) % Bay % (Auto) 7.2 (2-11) % Eos % (Auto) 2.1 (0-4) % Baso % (Auto) 0.4 (0-2) % Lymph # (Auto) 2.1 (1.2-4.9) X10*3/uL Bay # (Auto) 0.5 (0.1-1.2) X10*3/uL Eos # (Auto) 0.2 (0.0-0.4) X10*3/uL Baso # (Auto) 0.0 (0.0-0.2) X10*3/uL Abs Immat Gran (auto) 0.03 (0.00-0.03) X10*3/uL Absolute Neuts (auto) 4.4 (2.0-8.3) x10*3/uL Absolute Nucleated RBC 0.000 (0.0-0.012) X10*3/uL Nucleated RBC % (auto) 0.0 (0.0-0.2) /100WBC Sodium 141 (135-145) mmol/L Potassium 4.1 (3.3-5.1) mmol/L Chloride 109 H (96-108) mmol/L Carbon Dioxide 26 (22-29) mmol/L Anion Gap 10 L (12-20) BUN 12 (9-16) mg/dL Creatinine 0.74 (0.5-1.4) mg/dL Estim Creat Clear Calc 110.3 Estimated GFR > 60 Random Glucose 105 (60-115) mg/dL Calcium 9.0 (8.4-10.2) mg/dL Total Bilirubin 0.3 (0.0-1.0) mg/dL AST 22 (5-37) U/L ALT 31 (0-40) U/L Alkaline Phosphatase 162 H (39-117) U/L Total Protein 7.5 (6.5-8.0) g/dL Albumin 4.1 (3.5-5.0) g/dL Urine Color Yellow Urine Appearance Clear Urine pH 6.0 (5.0-9.0) Ur Specific [place] 1.025 (1.005-1.025) Urine Protein Negative (Neg-Trace) mg/dL Urine Glucose (UA) Negative (Negative) mg/dL Urine Ketones Negative (Negative) mg/dL Urine Blood Negative (Negative) Urine Nitrite Negative (Negative) Ur Leukocyte Esterase Negative (Negative) Discharge Plan Discharge Clinical Impression: Penile swelling Patient Disposition: Home, Self-Care Additional Instructions: Follow-up with the Urology we spoke with the Urology Dr. Natanael Varner she will see you for follow-up call office, take prednisone and take antibiotic as directed return to the emergency room if you worse Prescriptions: New prednisone 20 mg tablet 60 mg PO DAILY Qty: 12 0RF levofloxacin 500 mg tablet 500 mg PO DAILY 5 Days Qty: 5 0RF Referrals: Fatuma Hidalgo MD [Physician] - 2 days Print Language: Samoan
[2024-04-27 08:08] LABS: MANUAL DIFF FLAG NO
[2024-04-27 08:10] LABS: Basophils Percent Auto 0.4 % (0-2); Eosinophils Absolute Auto 0.2 X10*3/uL (0.0-0.4); Eosinophils Percent Auto 2.1 % (0-4); Hematocrit 43.2 % (42.0-52.0); Imm Gran Abs Auto 0.03 X10*3/uL (0.00-0.03); Imm Gran Pct Auto 0.4 % (0.0-0.4); Lymphocytes Absolute Auto 2.1 X10*3/uL (1.2-4.9); Lymphocytes Percent Auto 29.1 % (20-40); Mean Corpuscular HGB Conc 34.7 g/dl (31.0-36.0); Mean Corpuscular Volume 80.7 fL (80.0-98.0); Mean Platelet Volume 8.5 fL (9.4-12.4); Monocytes Absolute Auto 0.5 X10*3/uL (0.1-1.2); Monocytes Percent Auto 7.2 % (2-11); Neutrophils Absolute Auto 4.4 x10*3/uL (2.0-8.3); Neutrophils Percent Auto 60.8 % (45-73); Platelet Count 316 X10*3/uL (160-400); Red Blood Count 5.35 X10*6/uL (4.60-5.80); Red Cell Distribution Width 12.9 % (11.0-16.0); White Blood Count 7.2 X10*3/uL (4.8-10.8)
[2024-04-27 08:11] LABS: Appearance Urine Clear; Color Urine Yellow; Glucose Urine UA Negative (Negative); Leukocyte Esterase Urine Negative (Negative); Nitrite Urine Negative (Negative); Specific Gravity - Urine 1.025 (1.005-1.025); Urine Blood Negative (Negative); Urine Ketones Negative (Negative); Urine Protein Negative (Neg-Trace)
[2024-04-27 08:27] LABS: Alanine Aminotransferase 31 U/L (0-40); Albumin Level 4.1 g/dL (3.5-5.0); Alkaline Phosphatase 162 U/L (39-117); Anion Gap 10 (12-20); Aspartate Amino Transferase 22 U/L (5-37); Bilirubin Total 0.3 mg/dL (0.0-1.0); Blood Urea Nitrogen 12 mg/dL (9-16); Carbon Dioxide 26 mmol/L (22-29); Chloride 109 mmol/L (96-108); Creatinine Clr Calc Pharmacy 110.3; Estimated Glomerular Filt Rate > 60; Glucose Random 105 mg/dL (60-115); Potassium 4.1 mmol/L (3.3-5.1); Sodium 141 mmol/L (135-145); Total Protein 7.5 g/dL (6.5-8.0)
[2024-04-27] MEDS: hydrOXYzine HCL 25 MG TABLET PO (08:30)
[2024-04-27] MEDS: levoFLOXacin 500 MG TABLET PO (08:30)
[2024-04-27] MEDS: predniSONE 20 MG TABLET 60 MG PO (08:30)
[2024-04-27 09:15] VITALS: BP 119/89; PULSE 84; RESP 20; TEMP 36.9; O2SAT 97
[2024-04-27 13:39] LABS: CT PCR NOT DETECTED (Not Detect.); NG PCR NOT DETECTED (Not Detect.)
== END 2024-04-27 09:17 | disposition home or self-care (01) ==
PROVIDERS: Physician Assistant; Emergency Provider Emergency Medicine; PCP Internal Medicine
DX: N48.89 Other specified disorders of penis (principal); B19.20 Unspecified viral hepatitis C without hepatic coma; K21.9 Gastro-esophageal reflux disease without esophagitis; K76.0 Fatty (change of) liver, not elsewhere classified; F17.210 Nicotine dependence, cigarettes, uncomplicated
CPT/HCPCS: 36415; 80053; 81003; 85025; 87491; 87591; 99282; 99283

== ENCOUNTER 2024-05-27 13:04 | Outpatient (AMB) | payer OTHER, SELFPAY ==
--- NOTE | 2024-05-27 13:11 | A.OFFVIS_ITS ---
Intake Visit Reasons: [facility] Follow Up: penile swelling Intake Note: Pt presents to the office today for a [facility] follow up for penile swelling. Allergies No Known Allergies [No Known Allergies*] Allergy (Verified 05/27/24 13:11) HPI Comments Details: Callus is a pleasant male. He is a patient of Dr. Hubbard. He seen for the following urologic conditions - foreskin swelling Had been seen in the emergency room for swelling of the foreskin. Aggravated with application rfrx-zsr-gmrdztn cream Resolved with combination prednisone Examination today has some cracking of the foreskin High cholesterol Recommend low-dose clotrimazole plus betamethasone cream Discussed hygiene of foreskin and reduction of direct application of soap which causes dermatitis PFSH Medical History Hepatitis C GERD (gastroesophageal reflux disease) Social History Housing: House Patient Tobacco Use Status: Current everyday Tobacco user Tobacco use type: Cigarette Cigarette Packs Per Day: 1 Cigarettes Per Day: 10 Years Smoked: +20 service: No Current occupational status: employed Cognitive needs: No Hearing needs: No Vision needs: No Review of Systems Const Denies chills and Denies fever(s) Card Reports no additional complaints and Denies syncope Resp Denies cough GI Denies abdominal pain and Denies heartburn Reports as per HPI and Denies change in libido Neuro Denies syncope Psych Denies change in libido Endo Denies change in libido Physical Exam Const General: cooperative, healthy appearing, comfortable and no acute distress Orientation/consciousness: patient oriented x3 HEENT Face and sinus: Yes normal facial exam Mouth: moist mucous membranes Neck Neck: Yes normal visual inspection, Yes full ROM and Yes trachea midline Chest Chest palpation & inspection: normal inspection of the chest Resp Effort & Inspection: normal respiratory effort, able to speak in complete sentences and no respiratory distress GI Inspection: Yes normal to inspection Back/Spine/Pelvis Cervical Spine: normal cervical lordosis Thoracic/Lumbar Spine: thoracic and lumbar spine normal to inspection Skin General skin exam: no rashes or lesions noted Neuro General: patient oriented x3, gait normal, tone normal and moves all extremities Extrem General: Yes normal to inspection and Yes capillary refill normal Assessment & Plan Assessment & Plan (1) Balanitis: Code(s): N48.1 - Balanitis Category: Medical Plan P.r.n. follow-up Medications: New clotrimazole-betamethasone 1-0.05 % Apply thin coat 2 times per day 1 appl topical BID 4 weeks 45 grams 0RF N48.1 - Balanitis Patient Instructions: This note is constructed using voice recognition software. While every effort has been made to ensure accuracy ornamental ironworker helper errors may have been included. Imaging studies, laboratory and physical exam results were discussed and reviewed in detail. No major barriers to patient understanding were identified. An opportunity to ask questions regarding the treatment plan was provided. All questions were answered. The patient expressed understanding and agreement with the above treatment plan. The patient is aware they should contact our office by phone for worsening of their current condition or the appearance of new urologic symptoms. Compliance is encouraged with any medications and followup testing that is ordered. It is a privilege to participate in the urologic care of your patient. If you have any questions or concerns regarding treatment for the above conditions, or other urologic issues, please do not hesitate to contact me. The office telephone contact is [phone]. Sincerely, Dr Antonio Romero MD, [facility] - Urology Compassionate Specialist Care for the Genitourinary System Coding Level of Care Code New Pt Level 4 (69602) Diagnoses Balanitis N48.1
--- OUTSIDE RECORDS SUMMARY | 2024-05-27 14:27 | XMS_ITS | Encounter Summary ---
Author Organization [employer] Address [address] [place] [address] Care Team Providers Care Drainage Engineer Name Role Phone Physician, Pcp Unknown Primary Care Provider Yelitza vailable Reason for Visit * Reason Comments Groin Swelling Penis swelling and i tching x 2 days Encounter Details Date Type Department Care Team (Late st Contact Info) Description 04/26/2024 11:29 PM EST - 04/27/2024 5:36 AM EST Emergency [facility] Emergency [address] [place] [address] Discharge Disposition: Home or Self Care Social History Tobacco Use Types Packs/Day Years Used Date Smoking Tobacco: Never Assessed Sex and Gender Information Value Date Recorded Sex Assigned at Male 05/07/2024 10:32 AM EST Legal Sex Male 12:37 PM EST Gender Identity Male 05/07/2024 10:32 AM EST Sexual Orientation Straight 05/07/2024 10 :32 AM EST documented as of this encounter Last Filed Vital Signs Vital Sign Reading Time Taken Comments Blood Pressure 129/88 04/26/2024 11:49 PM EST Pulse 86 04/26/2024 11:49 PM EST Temperature 36.7 ??C (98.1 ??F) 04/26/2024 11:[address] Respiratory Rate 16 04/26/2024 11:49 PM EST Oxygen Saturation 100% 04/26/2024 11:49 PM EST Inhaled Oxygen Concentration - - Weight 83.9 kg (185 lb) 04/26/2024 11:49 PM EST Height 167.6 cm (5' 6 ) 04/26/2024 11:49 PM EST Body Mass Index 29.86 04/26/2024 11:49 PM EST documented in this encounter Discharge Disposition Disposition Code Departure Means Destination Home or Self Care documented in this encounter Progress Notes * Val Cruz RN - 04/26/2024 11:47 PM EST Presents c/o itching to his penis x 2 days. States he also has noticed some swelling. States he hasno pain but it is so itchy it makes it uncomfortable. Pt denies any discharge and states he only has one partner documented in this encounter Plan of Treatment Not on file documented as of this encounter Visit Diagnoses Not on filedocumented in this encounter Care Teams Drainage Engineer Relationship Specialty Start Date End Date Physician, Pcp Unknown PCP - General 04/27/24 documented as of this encounter
--- OUTSIDE RECORDS SUMMARY | 2024-05-27 14:28 | XMS_ITS ---
Author Organization [facility] Address [address] [place] [address] Care Team Providers Care Cotton Farmworker Name Role Phone Celina Hubbard Primary Care Provider Unavailab Caio Tubbs Unavailable [phone] Encounters Encounter Location Date Provider Diagnosis [facility] [place] [address] 12/29/2023 Caio Guerrero PLAN OF TREATMENT Next Appt Details Provider Name:Caio Guerrero , 12/24/2024 09:00:00 AM, [address], [address], [place], [address],
--- OUTSIDE RECORDS SUMMARY | 2024-05-27 14:28 | XMS_ITS ---
Author Organization [facility] Address [address] [place] [id number] Care Team Providers Care Cook Camp Name Role Phone Celina Hubbard Primary Care Provider Unavailab Caio Tubbs Unavailable [phone] ALLERGIES No Known Allergies REASON FOR VISIT Patient presents today for erosive esophagitis and duodenal ulcer MEDICATIONS Medication SIG (Take, Route, Fr equency, Duration) Notes Start Date End Date Status Omeprazole 20 MG 1 Orally Every morning for 30 days 05/14/2023 Active SOCIAL HISTORY Tobacco Use: Social History Observation Description Date Details (start date - stop date) Former Smoker NA - NA Sex Assigned At : Social History Observation Description Sex Assigned At Unknown Tobacco Use/Smoking Question Answer Notes Patient is a former smoker How long has it been since you last smoked? 1-3 months Alcohol Screen Question Answer Notes Did you have a drink containing alcohol in the p ast year? No Points 0 Interpretation Negative VITAL SIGNS BMI 29.86 kg/m2 12/24/2023 Blood pressure systolic 00 mm Hg 12/24/19 24 Blood pressure diastolic 00 mm Hg 024 Height 5 ft 6 in in 12/24/2023 Weight 185 lbs 12/24/2023 Encounters Encounter Location Date Provider Diagnosis [facility] [address] [place] [id number] 12/24/2023 Caio Guerrero Fatty liver K76.0 ; Elevated liver function tests R79.89 ; Gastroesophageal reflux disease, unspecified whether esophagitis present K21.9 and Duodenal ulcer K26.9 ASSESSMENTS Encounter Date Diagnosis Assessment Notes Treatment Notes Treatment Clinical Notes 12/24/2023 Fatty liver (ICD-10 - K76.0) 12/24/2023 Elevated liver function tests (ICD-10 - R79.89) 12/24/2023 Gastroesophageal reflux disease, unspecified whether esophagitis present (ICD-10 - K21.9) 12/24/2023 Duodenal ulcer (ICD- 10 - K26.9) 12/24/2023 Other We will set up a colonoscopy for you after age 45 PLAN OF TREATMENT Medication Medication Name Sig Start Date Stop Date Notes Omeprazole 20 MG 1 Orally Every morning for 30 days 2023 Treatment Notes Assessment Notes Other We will set up a col onoscopy for you after age 45 Pending Test Test Name Order Date LIVER PROFILE 12/24/2023 Next Appt Details Follow Up: 1 Year, Reason: Provider Name:Caio Guerrero , 12/24/2024 09:00:00 AM, [address] [place] [address], [address], [place], [address], Progress Notes * Examination Category Sub-Category Detail Notes General Examination GENERAL APPEARANCE: pleasant , well nourished, well developed, in no acute distress HEAD: EYES: sclera non-icteric EARS: NOSE: THROAT: NECK/THYROID: no cervical lymphade nopathy, neck supple HEART: S1, S2 normal CHEST: LUNGS: clear to auscultatio n bilaterally ABDOMEN: normal bowel sounds, no guarding or rigidity, no guarding or rigidity, no masses palpable, soft, nontender, nondistended NEUROLOGIC: alert and oriented SKIN: nonjaundiced, no spi rona angiomata EXTREMITIES: no edema PERIPHERAL PULSES: BACK: BREASTS: MUSCULOSKELETAL: MALE GENITOURINARY: LYMPH NODES: RECTAL EXAM: FEMALE GENITOURINARY: ORAL CAVITY: mucosa moist
--- OUTSIDE RECORDS SUMMARY | 2024-05-27 14:28 | XMS_ITS | Clinical Summary ---
Author Organization [facility] Address [address] [place] [address] Phone Care Team Providers Care [facility] Consultant Name Role Phone Physician, Pcp Unknown Primary Care Provider Yelitza vailable Allergies No known active allergies Encounters Date Type Department Care Team Description 04/26/2024 11:29 PM EST - 04/27/2024 5:36 AM EST Emergency [facility] Emergency [address] [place] [address] Discharge Disposition: Home or Self Care from Last 3 Months Social History Tobacco Use Types Packs/Day Years Used Date Smoking Tobacco: Never Assessed Sex and Gender Information Value Date Recorded Sex Assigned at Male 05/07/2024 10:32 AM EST Legal Sex Male 12:37 PM EST Gender Identity Male 05/07/2024 10:32 AM EST Sexual Orientation Straight 05/07/2024 10 :32 AM EST Last Filed Vital Signs Vital Sign Reading [...] Mass Index 29.86 04/26/2024 11:49 PM EST Plan of Treatment Health Maintenance Due Date Last Done Comments DTaP,Tdap,and Td Vaccines (1 - Tdap) 02/17/1999 Hepatitis B Vaccines (1 of 3 - 19+ 3-dose series) 02/17/1999 COVID-19 Vaccine (2023-2 5 season) 2023 Influenza Vaccine (#1) 2023 Cholesterol Screening (Lipid Panel) 04/27/2024 Depression Screening 04/27/2024 HIV Screening 04/27/2024 Hepatitis C Screening 04/27/2024 Social Influencers of Health Screening 04/27/2024 HIB Vaccines Aged Out No longer eligi ble based on patient's age to complete this topic HPV Vaccines Aged Out No longer eligi ble based on patient's age to complete this topic Hepatitis A Vaccines Aged Out No long er eligible based on patient's age to complete this topic IPV Vaccines Aged Out No longer eligi ble based on patient's age to complete this topic MMR Vaccines Aged Out No longer eligi ble based on patient's age to complete this topic Meningococcal ACWY Vaccine Aged Out N o longer eligible based on patient's age to complete this topic Pneumococcal Vaccine: Pediat rics (0 to 5 Years) and At-Risk Patients (6 to 64 Years) Aged Out No longer eligible b ased on patient's age to complete this topic RSV Immunization Patients Un rona 20 months Aged Out No longer eligible b ased on patient's age to complete this topic Varicella Vaccines Aged Out No longer eligible based on patient's age to complete this topic Insurance MEDICAID - [place] Care Teams [facility] Consultant Relationship Specialty Start Date End Date Physician, Pcp Unknown PCP - General 04/27/24
--- OUTSIDE RECORDS SUMMARY | 2024-05-27 14:28 | XMS_ITS | Patient Health Record ---
Author Organization [facility] Address [address] [place] [address] Care Team Providers Care Electrical Engineering Designer Name Role Phone Ceferinosarah Celina Primary Care Provider UnavailCaio Boogie Unavailable [phone] ALLERGIES No Known Allergies RESULTS Component Value Reference Range Notes Pathology Reviewed date:12/24/2023 09:50:49 AM Interpretation: Performing Lab:[facility], [address] [place] [phone] Notes/Report: Liver Panel (Not yet reviewe d by provider) Interpretation: Performing Lab:[facility], [address] [place] [phone] Notes/Report: Bilirubin Total 0.4 0.0-1.0 mg/dL Bilirubin Direct 0.1 0.0-0.5 mg/dL Aspartate Amino Transferase 24 5-37 U/L Alanine Aminotransferase 48 0-40 U/L Total Protein 7.5 6.5-8.0 g/dL Albumin Level 4.2 3.5-5.0 g/dL Alkaline Phosphatase 161 39-117 U/L REASON FOR REFERRAL No Information MEDICATIONS Medication SIG (Take, Route, Fr equency, Duration) Notes Start Date End Date Status Omeprazole 20 MG 1 Orally Every morning for 30 days Active SOCIAL HISTORY Tobacco Use: Social History [...] ast year? No Points 0 Interpretation Negative PROBLEMS Problem Type ICD Code Onset Dates Problem Status W/U Status Risk SNOMED Code Notes Problem Duodenitis (K29.80) Active confirmed Du odenitis (10200976) Problem Elevated liver function tests (R79.89) Active confirmed 094296987 Problem Fatty liver (K76.0) Active confirmed 19 6263530 Problem Duodenal ulcer (K26.9) Active confirmed Duodenal ulcer (68665244) Problem Gastroesophageal reflux disease, unspecified whether esophagitis present (K21.9) Active confirmed 257433670 VITAL SIGNS Blood pressure diastolic 00 mm Hg 12/24/2023 Height 5 ft 6 in in 12/24/2023 Blood pressure systolic 00 mm Hg 12/24/2023 Weight 185 lbs 12/24/2023 BMI 29.86 kg/m2 12/24/2023 Encounters Encounter Location Date Provider Diagnosis [facility] [address] [place] [id number] 08/07/2023 Caio Guerrero 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 ; Duodenal ulcer K26.9 and Duodenitis K29.80 [facility] [address] [place] [phone] 12/24/2023 Caio Guerrero Fatty liver K76.0 ; Elevated liver function tests R79.89 ; Gastroesophageal reflux disease, unspecified whether esophagitis present K21.9 and Duodenal ulcer K26.9 [facility] [address] [place] [phone] 09/04/2023 Caio Guerrero [facility] [address] [place] [phone] 08/12/2023 Caio Guerrero [facility] [address] [place] [phone] 12/29/2023 Caio Guerrero ASSESSMENTS Encounter Date Diagnosis Assessment Notes Treatment Notes Treatment Clinical Notes 08/07/2023 Mccauley's esophageal ulceration (ICD-10 - K22.10) 08/07/2023 Duodenal ulcer (ICD- 10 - K26.9) 12/24/2023 Elevated liver function tests (ICD-10 - R79.89) 12/24/2023 Fatty liver (ICD-10 - K76.0) 08/07/2023 Duodenitis (ICD-10 - K29.80) 12/24/2023 Gastroesophageal reflux disease, unspecified whether esophagitis present (ICD-10 - K21.9) 12/24/2023 Duodenal ulcer (ICD- 10 - K26.9) 12/24/2023 Other We will set up a colonoscopy for you after age 45 PLAN OF TREATMENT Pending Test Test Name Order Date LIVER PROFILE 05/14/2023 LIVER PROFILE 12/24/2023 GGT 05/14/2023 IRON + IBC (FE) 05/14/2023 HEPATITIS B PROFILE 05/14/2023 FLUOR. ANTINUCLEAR AB SCREEN (MAX) 04/17 Liver Panel 12/24/2023 Future Test Test Name Order Date UPPER GI ENDOSCOPY 05/14/2023 Next Appt Details Provider Name:Caio Mueller Guerrero , 12/24/2024 09:00:00 AM, [address] [place] [address], [address], [place], [address], Insurance Providers Payer Name Payer Address Payer Phone Subscriber Number Group Number Insured Name Patient Relationship to Insured Coverage Start Date Coverage End Date [facility] [address] [place] [address] [id number] MAGNUS ANN Self - patient is the insured MEDICAL (GENERAL) HISTORY Medical History History ICD Code Denies ME,DM,CVA,Lung disease,renal dise ase Fatty liver with elevated al kaline phosphatase--his workup was completely negative in regard to laboratories and ultrasound described only fatty liver, but without any sign of cirrhosis or portal hypertension GERD-upper endoscopy in Apri l of 2023 revealed erosive esophagitis, small hiatal hernia, duodenal ulcers, and duodenitis. Gastric biopsies were negative for H. pylori and esophageal biopsies were negative for Mccauley's esophagus Surgical History Surgery Date(Month/Year)
--- OUTSIDE RECORDS SUMMARY | 2024-05-27 14:28 | XMS_ITS ---
Author Organization [facility] Address [address] [place] [address] Care Team Providers Care Apron Operator Name Role Phone Celina Hubbard Primary Care Provider Unavailab Caio Tubbs Unavailable [phone] REASON FOR VISIT hepatic stenosis, hepc Encounters Encounter Location Date Provider Diagnosis [facility] [address] [place] [address] [address] [place] [address] 09/04/2023 Caio Guerrero PLAN OF TREATMENT Next Appt Details Provider Name:Caio Guerrero , 12/24/2024 09:00:00 AM, [address] [facility], [address], [place], [address],
== END 2024-05-27 13:23 | disposition home or self-care (01) ==
PROVIDERS: PCP Internal Medicine; Visit Provider Urology
DX: N48.1 Balanitis (principal)
CPT/HCPCS: 99204

== ENCOUNTER → 2024-05-27 13:04 | Outpatient (BNVA) | payer OTHER, SELFPAY | PROVIDERS: PCP Internal Medicine; Visit Provider Urology | DX: N48.1 Balanitis (principal) | CPT/HCPCS: 99202 ==

== ENCOUNTER 2024-06-24 06:20 | Outpatient (REF) | payer OTHER, SELFPAY ==
--- OUTSIDE RECORDS SUMMARY | 2024-06-24 06:23 | XMS_ITS | Patient Health Record ---
Author Organization [facility] Address [address] [place] [phone] Care Team Providers Care Channel Process Plant Operator Name Role Phone Celina Hubbard Primary Care Provider Unavailab Caio Tubbs Unavailable [phone] Allergies No Known Allergies Results Component Value Reference Range Notes Pathology Reviewed date:12/24/2023 09:50:49 AM Interpretation: Performing Lab:[facility], [address] [place] [phone] Notes/Report: --------- ----- Name: Leopoldo Lara Age/Sex: 43/M : 1980 Unit#: [id number] Attend Dr: Caio Guerrero Re08/07/23 Status : [facility] Location: [facility] Disch: --------- ----- SPEC : [id number] RECD : 08/07/23-1153 STATUS: MARION DAUGHERTY NUM: [id number] KRISTINE: 08/07/23-1101 [facility] DR: Caio Guerrero ENTERED: 08/07/23- 15 SP TYPE: Surgical OTHR DR: Celina Hubbard MD ORDERED: HE Stain/6, Gross Micro L4/2, IHC, Special st. 2/2, H. pylori, AB/PAS/2 Diagnosis A. Gastric antrum, b iopsy: Gastric antral mucosa with minimal chronic inactive gastritis; negative for H pylori, intestinal metaplasia and dysplasia. B. Esophagus, at 37- 38 cm, biopsy: Squamous mucosa with hyperplasia and rare neutrophils, suggest ing esophagitis; no columnar mucosa present. Clinical History Pre-Op Dx: Reflux Post-Op Dx: Duodenit is, esophagitis, duodenal ulcer Microscopic Description Microscopic sections reviewed. Immunostain for H. pylori on A is negative. AB/PAS on A is negative for intesti nal metaplasia. Controls stain appropriately. Material Received A. Gastric antrum B. Esophagus 37 - 38 Gross Description Received in 2 parts. Part A: Received in formalin labeled ?gastric antrum? are 3 barboza-pink irregular and rectangular tissue f ragments ranging from 0.25-0.5 cm, submitted in toto in a cassette labeled A. Part B: Received in formalin labeled ?esophagus 37-38? are 3 rick-white and rick-pink irregular and rectan gular tissue fragments ranging from 0.3-0.45 cm, submitted in toto in a cassette labeled B. CEDS Special studies orde red and performed: Immunostain for H. pylori on A1; AB/PAS stains on A1. CONTINUED ON NEXT PAGE --------- ----- Name: Leopoldo Lara Age/Sex: 43/M : 1980 Unit#: [id number] Attend Dr: Caio Guerrero Re08/07/23 Status : [facility] Location: [facility] Disch: --------- ----- SPEC : [id number] RECD : 08/07/23-1153 STATUS: YUERaul DAT NUM: [id number] KRISTINE: 08/07/23 [facility] DR: Ciao Guerrero ENTERED: 08/07/23-12 15 SP TYPE: Surgical OTHR DR: Celina Hubbard MD ORDERED: HE Stain/6, Gross Micro L4/2, IHC, Special st. 2/2, H. pylori, AB/PAS/2 Copies To: Celina Hubbard MD [address] [place] [address] [address] [address] Caio Guerrero [address] [place] [address] [id number] [place] [address] --------- ----- Signed (si gnature on file) Ivana Quintero 08/08/231949 --------- ----- END OF REPORT Liver Panel (Not yet reviewe d by provider) Interpretation: Performing Lab:[facility], [address] [place] [phone] Notes/Report: Bilirubin Total 0.4 0.0-1.0 mg/dL Bilirubin Direct 0.1 0.0-0.5 mg/dL Aspartate Amino Transferase 24 5-37 U/L Alanine Aminotransferase 48 0-40 U/L Total Protein 7.5 6.5-8.0 g/dL Albumin Level 4.2 3.5-5.0 g/dL Alkaline Phosphatase 161 39-117 U/L Reason For Referral No Information Medications Medication SIG (Take, Route, Fr equency, Duration) Notes Start Date End Date Status Omeprazole 40 MG 1 capsule 1/2 to 1 h our before morning meal Orally Once a day for 30 day(s) 06/03/2024 Active Omeprazole 20 MG 1 Orally Every morning for 30 days Active Social History Tobacco Use: Social History Observation Description Date Details (start date - stop date) Former Smoker NA - NA Tobacco Use/Smoking Question Answer Notes Patient is a former smoker How long has it been since you last smoked? 1-3 months Alcohol Screen Question Answer Notes Did you have a drink containing alcohol in the p ast year? No Points 0 Interpretation Negative Section Notes: Stopped smoking in Summer of 2023; denies alcohol use Problems Problem Type SNOMED Code ICD Code Onset Dates Problem Status W/U Status Risk Notes Problem Duodenitis (87760095) Duodenitis (K29.80) Active confirmed Problem 935314509 Elevated liver function tests (R79.89) Active confirmed Problem 557022868 Fatty liver (K76.0) Active confirmed Problem Duodenal ulcer (19607842) Duodenal ulcer (K26.9) Active confirmed Problem 446986271 Gastroesophageal reflux disease, unspecified whether esophagitis present (K21.9) Active confirmed Vital Signs Blood pressure diastolic 00 mm Hg 12/24/2023 Height 5 ft 6 in in 12/24/2023 Blood pressure systolic 00 mm Hg 12/24/2023 Weight 185 lbs 12/24/2023 BMI 29.86 kg/m2 12/24/2023 Encounters Encounter Location Date Provider Diagnosis [facility] [address] [place] [id number] 08/07/2023 Caio Guerrero 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 ; Duodenal ulcer K26.9 and Duodenitis K29.80 [facility] [address] [facility] [place] [address] 12/24/2023 Caio Guerrero Fatty liver K76.0 ; Elevated liver function tests R79.89 ; Gastroesophageal reflux disease, unspecified whether esophagitis present K21.9 and Duodenal ulcer K26.9 [facility] [address] [facility] [place] [address] 08/12/2023 Caio Guerrero [facility] [address] [place], [place] [address] [place] [address] 12/29/2023 Caio Guerrero [facility] [address] [place] [phone] 06/03/2024 Caio Guerrero Assessments Encounter Date Diagnosis (ICD Code) Assessment Notes Treatment Notes Treatment Clinical Notes Section Notes 08/07/2023 Mccauley's esophageal ulceration (ICD-10 - K22.10) 08/07/2023 Duodenal ulcer (ICD-10 - K26.9) 12/24/2023 Elevated liver function tests (ICD-10 - R79.89) Overall, Leopoldo appears well. We did review the findings on his upper endoscopy from earlier this year and advised him to continue his daily omeprazole on a long-term basis. Based on the biopsy findings and his current clinical history I do not think a repeat endoscopy is presently required. I did advise him to try to avoid all NSAIDs, alcohol, and to remain off cigarettes as he is doing. In regard to his previously elevated LFTs I shall repeat liver profile today. We did discuss the history of fatty liver and I do suspect his recent weight gain since having stopped smoking may cause some further elevation of his LFTs as well. I did advise him to try to start losing weight and watching his diet. I will plan to see him in one year for a followup visit. I did advise him that at that point we could schedule him for a screening colonoscopy after his 45th birthday. I did advise him to contact me before the office visit if he has any problems or questions I can be of assistance with. Leopoldo was comfortable with this plan. Thank you again for allowing me to participate in Leopoldo's care. I shall continue to keep you advised of his progress. 12/24/2023 Fatty liver (ICD-10 - K76.0) Overall, Leopoldo appears well. We did review the findings on his upper endoscopy from earlier this year and advised him to continue his daily omeprazole on a long-term basis. Based on the biopsy findings and his current clinical history I do not think a repeat endoscopy is presently required. I did advise him to try to avoid all NSAIDs, alcohol, and to remain off cigarettes as he is doing. In regard to his previously elevated LFTs I shall repeat liver profile today. We did discuss the history of fatty liver and I do suspect his recent weight gain since having stopped smoking may cause some further elevation of his LFTs as well. I did advise him to try to start losing weight and watching his diet. I will plan to see him in one year for a followup visit. I did advise him that at that point we could schedule him for a screening colonoscopy after his 45th birthday. I did advise him to contact me before the office visit if he has any problems or questions I can be of assistance with. Leopoldo was comfortable with this plan. Thank you again for allowing me to participate in Leopoldo's care. I shall continue to keep you advised of his progress. 08/07/2023 Duodenitis (ICD-10 - K29.80) 12/24/2023 Gastroesophageal reflux disease, unspecified whether esophagitis present (ICD-10 - K21.9) Overall, Leopoldo appears well. We did review the findings on his upper endoscopy from earlier this year and advised him to continue his daily omeprazole on a long-term basis. Based on the biopsy findings and his current clinical history I do not think a repeat endoscopy is presently required. I did advise him to try to avoid all NSAIDs, alcohol, and to remain off cigarettes as he is doing. In regard to his previously elevated LFTs I shall repeat liver profile today. We did discuss the history of fatty liver and I do suspect his recent weight gain since having stopped smoking may cause some further elevation of his LFTs as well. I did advise him to try to start losing weight and watching his diet. I will plan to see him in one year for a followup visit. I did advise him that at that point we could schedule him for a screening colonoscopy after his 45th birthday. I did advise him to contact me before the office visit if he has any problems or questions I can be of assistance with. Leopoldo was comfortable with this plan. Thank you again for allowing me to participate in Leopoldo's care. I shall continue to keep you advised of his progress. 12/24/2023 Duodenal ulcer (ICD-10 - K26.9) Overall, Leopoldo appears well. We did review the findings on his upper endoscopy from earlier this year and advised him to continue his daily omeprazole on a long-term basis. Based on the biopsy findings and his current clinical history I do not think a repeat endoscopy is presently required. I did advise him to try to avoid all NSAIDs, alcohol, and to remain off cigarettes as he is doing. In regard to his previously elevated LFTs I shall repeat liver profile today. We did discuss the history of fatty liver and I do suspect his recent weight gain since having stopped smoking may cause some further elevation of his LFTs as well. I did advise him to try to start losing weight and watching his diet. I will plan to see him in one year for a followup visit. I did advise him that at that point we could schedule him for a screening colonoscopy after his 45th birthday. I did advise him to contact me before the office visit if he has any problems or questions I can be of assistance with. Leopoldo was comfortable with this plan. Thank you again for allowing me to participate in Leopoldo's care. I shall continue to keep you advised of his progress. 12/24/2023 Other We will set up a colonoscopy for you after age 45 Overall, Leopoldo appears well. We did review the findings on his upper endoscopy from earlier this year and advised him to continue his daily omeprazole on a long-term basis. Based on the biopsy findings and his current clinical history I do not think a repeat endoscopy is presently required. I did advise him to try to avoid all NSAIDs, alcohol, and to remain off cigarettes as he is doing. In regard to his previously elevated LFTs I shall repeat liver profile today. We did discuss the history of fatty liver and I do suspect his recent weight gain since having stopped smoking may cause some further elevation of his LFTs as well. I did advise him to try to start losing weight and watching his diet. I will plan to see him in one year for a followup visit. I did advise him that at that point we could schedule him for a screening colonoscopy after his 45th birthday. I did advise him to contact me before the office visit if he has any problems or questions I can be of assistance with. Leopoldo was comfortable with this plan. Thank you again for allowing me to participate in Leopoldo's care. I shall continue to keep you advised of his progress. Plan Of Treatment Pending Test Test Name Order Date LIVER PROFILE 05/14/2023 LIVER PROFILE 12/24/2023 GGT 05/14/2023 IRON + IBC (FE) 05/14/2023 HEPATITIS B PROFILE 05/14/2023 FLUOR. ANTINUCLEAR AB SCREEN (MAX) 04/17 Liver Panel 12/24/2023 Future Test Test Name Order Date UPPER GI ENDOSCOPY 05/14/2023 Next Appt Details Provider Name:Caio Mueller Yolanda , 07/07/2024 01:20:00 PM, [address] [place] [address], [address], [place], [address], Provider Name:Caio Ami Guerrero , 12/24/2024 09:00:00 AM, [address] [place] [address], [address], [place], [address], Insurance Providers Payer Name Payer Address Payer Phone Subscriber Number Group Number Insured Name Patient Relationship to Insured Coverage Start Date Coverage End Date [facility] [address] [place] [address] [id number] LEOPOLDO LARA Self - patient is the insured Medical (General) History Medical History History ICD Code Denies NM,DM,CVA,Lung disease,renal dise ase Fatty liver with elevated al kaline phosphatase--his workup was completely negative in regard to laboratories and ultrasound described only fatty liver, but without any sign of cirrhosis or portal hypertension GERD-upper endoscopy in Juli l of 2023 revealed erosive esophagitis, small hiatal hernia, duodenal ulcers, and duodenitis. Gastric biopsies were negative for H. pylori and esophageal biopsies were negative for Mccauley's esophagus Surgical History Surgery Date(Month/Year)
--- OUTSIDE RECORDS SUMMARY | 2024-06-24 06:23 | XMS_ITS ---
Author Organization [facility] Address [address] [place] [address] Care Team Providers Care Jacker Feeder Name Role Phone Celina Hubbard Primary Care Provider Unavailab Caio Tubbs Unavailable [phone] Allergies No Known Allergies REASON FOR VISIT Patient presents today for erosive esophagitis and duodenal ulcer Medications Medication SIG (Take, Route, Fr equency, Duration) Notes Start Date End Date Status Omeprazole 20 MG 1 Orally Every morning for 30 days 05/14/2023 Active Social History Tobacco Use: Social History [...] Interpretation Negative Section Notes: Stopped smoking in summer; denies alcohol use Vital Signs Blood pressure systolic 00 mm Hg 12/24/19 24 Blood pressure diastolic 00 mm Hg 024 Height 5 ft 6 in in 12/24/2023 Weight 185 lbs 12/24/2023 BMI 29.86 kg/m2 12/24/2023 Encounters Encounter Location Date Provider Diagnosis [facility] [address] [place] [address] 12/24/2023 Caio Guerrero Fatty liver K76.0 ; Elevated liver function tests R79.89 ; Gastroesophageal reflux disease, unspecified whether esophagitis present K21.9 and Duodenal ulcer K26.9 Assessments Encounter Date Diagnosis (ICD Code) Assessment Notes Treatment Notes Treatment Clinical Notes Section Notes 12/24/2023 Fatty liver (ICD-10 - K76.0) Overall, Magnus appears well. We did review the findings [...] questions I can be of assistance with. Magnus was comfortable with this plan. Thank you again for allowing me to participate in Magnus's care. I shall continue to keep you advised of his progress. 12/24/2023 Elevated liver function tests (ICD-10 - R79.89) Overall, Magnus appears well. We did review the findings [...] questions I can be of assistance with. Magnus was comfortable with this plan. Thank you again for allowing me to participate in Magnus's care. I shall continue to keep you advised of his progress. 12/24/2023 Gastroesophageal reflux disease, unspecified whether esophagitis present (ICD-10 - K21.9) Overall, Magnus appears well. We did review the findings [...] questions I can be of assistance with. Magnus was comfortable with this plan. Thank you again for allowing me to participate in Magnus's care. I shall continue to keep you advised of his progress. 12/24/2023 Duodenal ulcer (ICD-10 - K26.9) Overall, Magnus appears well. We did review the findings [...] questions I can be of assistance with. Magnus was comfortable with this plan. Thank you again for allowing me to participate in Magnus's care. I shall continue to keep you advised of his progress. 12/24/2023 Other We will set up a colonoscopy for you after age 45 Overall, Magnus appears well. We did review the findings [...] questions I can be of assistance with. Magnus was comfortable with this plan. Thank you again for allowing me to participate in Magnus's care. I shall continue to keep you advised of his progress. Plan Of Treatment Medication Medication Name Sig Start Date Stop Date Notes Omeprazole 20 MG 1 Orally Every morning for 30 days 2023 Treatment Notes Assessment Notes Other We will set up a col onoscopy for you after age 45 Pending Test Test Name Order Date LIVER PROFILE 12/24/2023 Next Appt Details Follow Up: 1 Year, Reason: Provider Name:Caio Guerrero , 07/07/2024 01:20:00 PM, [address], [address], [place], [address], Provider Name:Caio Guerrero , 12/24/2024 09:00:00 AM, [address] [facility] [facility], [address], [place], [address], Progress Notes * GEOVANNA ANNOB: 0 (43 yo M)Acc No.[id number]:12/24/2023 Progress Notes Patient:MAGNUS WILKINSON Provider:?Caio Guerrero MD :1980???Age:43 Y???Sex:Male Arnulfo e:12/24/2023 Address:[address] [place] [address] Pcp:Celina Hubbard Subjective: * Chief Complaints: * ???Patient presents today fo r erosive esophagitis and duodenal ulcer * HPI: ???incontinence:? I saw Magnus in followup today in regard to his underlying history of elevated LFTs and fatty liver, his gastroesophageal reflux, and finding of duodenal ulcers on his previous endoscopy. ?I last saw Magnus in July, at which time he underwent an upper endoscopy with the finding of some erosive esophagitis, small hiatal hernia, and duodenal ulcers with associated duodenitis. At that time he was only using omeprazole as needed and I instructed him to use it daily. Gastric biopsies were negative for H. pylori at that time and esophageal biopsies were negative for Mccauley's esophagus. ?Since using omeprazole daily he does report that his heartburn and previous abdominal discomfort have improved. He described that he is eating comfortably and denies any significant heartburn, dysphagia, nausea, nor vomiting. His bowel movements have been regular and without any signs of bleeding. He denies any known family history of colorectal cancer. ?His liver workup was completely negative and his ultrasound was consistent with that of a fatty liver. There was no evidence of any cirrhosis or portal hypertension on the study. Of note, he has gained over 10 pounds since he was here last, which he attributes to having stopped smoking over a month ago. He does not use any alcohol. * ROS:?General/Constitutional:?Change in appetite?denies.?Chills?denies.?Fatigue?denies.?Ophthalmologic:?Comments?all negative.?ENT:?Comments?all negative.?Respiratory:?hemoptysis?denies.?Cough?denies.?Cardiovascular:?Chest pain?denies.?Orthopnea?denies.?Gastrointestinal:?Comments?See HPI for details.?Genitourinary:?Hematuria?denies.?Dysuria?denies.?Musculoskeletal:?Painful joints?denies.?Weakness?denies.?Skin:?Itching?denies.?Rash?denies.?Neurologic:?Headache?denies.?Seizures?denies.?Psychiatric:?Comments?all negative.? * Medical History:? * Surgical History:?Denies Pas t Surgical History * Hospitalization/Major Diagno stic Procedure:?No Hospitalization History. * Family History:?Father: jaimee hinojosa?Mother: alive.? Uncle two years ago cirrhosis from EtOH No known hx of colon cancer. * Social History:?Tobacco Use:?Tobacco Use/Smoking?Patient is a?former smoker,?How long has it been since you last smoked??1-3 months.?Drugs/Alcohol:?Alcohol Screen?Did you have a drink containing alcohol in the past year??No,?Points?0,?Interpretation?Negative.?Miscellaneous:?Marital status: . 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 ???Stopped smoking in summer; denies alcohol use. * Medications:?TakingOmeprazol e 20 MG Capsule Delayed Release 1 Orally Every morningMedication List reviewed and reconciled with the patientTaking Omeprazole 20 MG Capsule Delayed Release 1 Orally Every morningMedication List reviewed and reconciled with the patient * Allergies:?N.K.D.A.yes[Aller gies Verified] Objective: * Vitals:?Wt: 185 lbs, Ht: 5 f t 6 in, BMI:29.86 Index, BP: 00/00 mm Hg. * Examination: ???General Examination: ?GENERAL APPEARANCE:?pleasant, well nourished, well developed, in no acute distress.?EYES:?sclera non-icteric.?ORAL CAVITY:?mucosa moist.?NECK/THYROID:?no cervical lymphadenopathy, neck supple.?SKIN:?nonjaundiced, no spider angiomata.?HEART:?S1, S2 normal.?LUNGS:?clear to auscultation bilaterally.?ABDOMEN:?normal bowel sounds, no guarding or rigidity, no guarding or rigidity, no masses palpable, soft, nontender, nondistended.?EXTREMITIES:?no edema.?NEUROLOGIC:?alert and oriented.? Assessment: * Assessment: 1.?Fatty liver - K76.0 (Prim misael)?2.?Elevated liver function tests - R79.89?3.?Gastroesophageal reflux disease, unspecified whether esophagitis present - K21.9?4.?Duodenal ulcer - K26.9? Overall, Magnus appears well . We did review the findings on his upper endoscopy from earlier this year and advised him to continue his daily omeprazole on a long- term basis. Based on the biopsy findings and [...] questions I can be of assistance with. Magnus was comfortable with this plan. Thank you again for allowing me to participate in Magnus's care. I shall continue to keep you advised of his progress. Plan: * Treatment: 2.?Elevated liver function t ests?LAB: LIVER PROFILE 3.?Gastroesophageal reflux d isease, unspecified whether esophagitis present? Refill Omeprazole Capsule Delayed Release, 20 MG, 1, Orally, Every morning, 30 days, 30, Refills 11.?? 4.?Others? Notes: We will set up a colonoscopy for you after age 45?? * Procedure Codes:?1036F TOBAC CO [id number] BP SCR NOT PRFRM REC REASON NOS * Preventive Medicine:? ??Counseling:?Care goal follow-up plan:?Above Normal BMI Follow-up?Giving encouragement to exercise,?BMI management provided?Yes.? * Follow Up:?1 Year * * Sign off status: Completed true * Provider:?Caio Guerrero MD Date:? 024 Generated for Soto kennedy/Yolanda/Quirinoitting on:?06/24/2024 06:23 AM EDT History and Physical Notes * HPI (History of Present Illness) Category Sub-Category Detail Notes Category Not es incontinence I saw Magnus in followup today in regard to his underlying history of elevated LFTs and fatty liver, his gastroesophageal reflux, and finding of duodenal ulcers on his previous endoscopy. I last saw Magnus in July, at which time he underwent an upper endoscopy with the finding of some erosive esophagitis, small hiatal hernia, and duodenal ulcers with associated duodenitis. At that time he was only using omeprazole as needed and I instructed him to use it daily. Gastric biopsies were negative for H. pylori at that time and esophageal biopsies were negative for Mccauley's esophagus. Since using omeprazole daily he does report that his heartburn and previous abdominal discomfort have improved. He described that he is eating comfortably and denies any significant heartburn, dysphagia, nausea, nor vomiting. His bowel movements have been regular and without any signs of bleeding. He denies any known family history of colorectal cancer. His liver workup was completely negative and his ultrasound was consistent with that of a fatty liver. There was no evidence of any cirrhosis or portal hypertension on the study. Of note, he has gained over 10 pounds since he was here last, which he attributes to having stopped smoking over a month ago. He does not use any alcohol. Examination Category Sub-Category Detail Notes Category Not es General Examination GENERAL APPEARANCE: pleasant , well [...]
--- OUTSIDE RECORDS SUMMARY | 2024-06-24 06:23 | XMS_ITS ---
Author Organization [facility] Address [address] [place] [address] [place] [address] Care Team Providers Care Glove Stitcher Name Role Phone Ceferinosarah Celina Primary Care Provider Unavailab Caio Tubbs Unavailable [phone] REASON FOR VISIT abd pain Medications Medication SIG (Take, Route, Fr equency, Duration) Notes Start Date End Date Status Omeprazole 40 MG 1 capsule 1/2 to 1 h our before morning meal Orally Once a day for 30 day(s) 06/03/2024 Active Encounters Encounter Location Date Provider Diagnosis [facility] [address] [address] 06/03/2024 Caio Guerrero Plan Of Treatment Medication Medication Name Sig Start Date Stop Date Notes Omeprazole 40 MG 1 capsule 1/2 to 1 h our before morning meal Orally Once a day for 30 day(s) 06/03/2024 Next Appt Details Provider Name:Caio Guerrero , 07/07/2024 01:20:00 PM, [address] [place] [address], [address] [facility], [place], [address], Provider Name:Caio Guerrero , 12/24/2024 09:00:00 AM, [address] [place] [address], [place] [address], [place], [address], Progress Notes * GEOVANNA ANNOB: 0 (44 yo M)Acc No.[id number]:06/03/2024 Patient:?MAGNUS ANN :1980???Age:44 Y???Sex:Male Address:[address] [place] [address], [place] [address] * Refills? Start Omeprazole Capsule Delayed Release, 40 MG, Orally, 30, 1 capsule 1/2 to 1 hour before morning meal, Once a day, 30 day(s), Refills=6 * true * Date:? Generated for Soto kennedy/Yolanda/eTransmitting on:?06/24/2024 06:23 AM EDT
--- OUTSIDE RECORDS SUMMARY | 2024-06-24 06:23 | XMS_ITS ---
Author Organization [facility] Address [address] [place] [address] Care Team Providers Care Block Stacker Name Role Phone Celina Hubbard Primary Care Provider Unavailab Caio Tubbs [phone] Encounters Encounter Location Date Provider Diagnosis [facility] [address] [place] [address] 12/29/2023 Caio Guerrero Plan Of Treatment Next Appt Details Provider Name:Caio Guerrero , 07/07/2024 01:20:00 PM, [address] [place] [address], [address], [place], [address], Provider Name:Caio Guerrero , 12/24/2024 09:00:00 AM, [address] [place] [address], [address], [place], [address], Progress Notes * GEOVANNA ANNOB: 0 (43 yo M)Acc No.[id number]:12/29/2023 Patient:?MARISSA MAGNUS :1980???Age:43 Y???Sex:Male Address:[address] [place] [address], [address] * true * Date:? Generated for Printi brent/Yolanda/eTransmitting on:?06/24/2024 06:23 AM EDT
[2024-06-24 07:36] LABS: Alanine Aminotransferase 49 U/L (0-40); Albumin Level 4.2 g/dL (3.5-5.0); Alkaline Phosphatase 163 U/L (39-117); Anion Gap 11 (12-20); Aspartate Amino Transferase 28 U/L (5-37); Bilirubin Total 0.6 mg/dL (0.0-1.0); Blood Urea Nitrogen 11 mg/dL (9-16); Calcium 8.9 mg/dL (8.4-10.2); Carbon Dioxide 24 mmol/L (22-29); Chloride 108 mmol/L (96-108); Cholesterol 243 mg/dL (<200); Estimated Glomerular Filt Rate > 60; Glucose Random 107 mg/dL (60-115); HDL Cholesterol 40 mg/dL (>40); LDL Cholesterol Calculated 161 mg/dL (<100); Potassium 3.9 mmol/L (3.3-5.1); Sodium 139 mmol/L (135-145); Total Protein 8.2 g/dL (6.5-8.0); Triglycerides 214 mg/dL (<150)
== END 2024-06-24 06:21 | disposition home or self-care (01) ==
LOC: HO.LAB 06:20
PROVIDERS: PCP Internal Medicine; Visit Provider Internal Medicine
DX: E78.2 Mixed hyperlipidemia (principal); F17.201 Nicotine dependence, unspecified, in remission; K76.0 Fatty (change of) liver, not elsewhere classified
CPT/HCPCS: 36415; 80053; 80061

== ENCOUNTER 2024-09-23 06:06 | Outpatient (REF) | payer OTHER, SELFPAY ==
--- OUTSIDE RECORDS SUMMARY | 2024-09-23 06:10 | XMS_ITS | Clinical Summary ---
Author Organization [facility] Address [address] [place] [address] Phone Care Team Providers Care Sponsorship Coordinator Name Role Phone Physician, Pcp Unknown Primary Care Provider Yelitza vailable Allergies No known active allergies Social History Tobacco Use Types Packs/Day Years [...] - 19+ 3-dose series) 02/17/1999 COVID-19 Vaccine ( - 2023-2 5 season) 2023 Cholesterol Screening (Lipid Panel) 04/27/2024 Depression Screening 04/27/2024 HIV Screening 04/27/2024 Hepatitis C Screening 04/27/2024 Social Influencers of Health Screening 04/27/2024 Influenza Vaccine (Season Ended) 2024 HIB Vaccines Aged Out No longer eligi [...] patient's age to complete this topic Meningococcal B Vaccine Aged Out No l onger eligible based on patient's age to complete [...] topic Insurance MEDICAID - [place] Care Teams Sponsorship Coordinator Relationship Specialty Start Date End Date Physician, Pcp Unknown PCP - General 04/27/24
[2024-09-23 08:17] LABS: Alanine Aminotransferase 58 U/L (0-40); Albumin Level 4.5 g/dL (3.5-5.0); Alkaline Phosphatase 170 U/L (39-117); Anion Gap 11 (12-20); Aspartate Amino Transferase 35 U/L (5-37); Bilirubin Total 0.6 mg/dL (0.0-1.0); Blood Urea Nitrogen 11 mg/dL (9-16); Calcium 9.2 mg/dL (8.4-10.2); Carbon Dioxide 27 mmol/L (22-29); Chloride 106 mmol/L (96-108); Cholesterol 143 mg/dL (<200); Estimated Glomerular Filt Rate > 60; Glucose Random 111 mg/dL (60-115); HDL Cholesterol 30 mg/dL (>40); LDL Cholesterol Calculated 82 mg/dL (<100); Potassium 3.9 mmol/L (3.3-5.1); Sodium 140 mmol/L (135-145); Total Protein 7.7 g/dL (6.5-8.0); Triglycerides 155 mg/dL (<150)
== END 2024-09-23 06:07 | disposition home or self-care (01) ==
LOC: HO.LAB 06:06
PROVIDERS: PCP Internal Medicine; Visit Provider Internal Medicine
DX: E78.00 Pure hypercholesterolemia, unspecified (principal); F17.201 Nicotine dependence, unspecified, in remission; R10.11 Right upper quadrant pain; R74.01 Elevation of levels of liver transaminase levels
CPT/HCPCS: 36415; 80053; 80061

== ENCOUNTER 2024-11-19 08:18 | Outpatient (REF) | payer OTHER, SELFPAY ==
--- OUTSIDE RECORDS SUMMARY | 2023-09-04 10:40 | XMS_ITS ---
Author Organization [facility] Address [address] [place] [phone] Care Team Providers Care Agriculture Engineer Name Role Phone Celina Hubbard Primary Care Provider Unavailab Caio Tubbs [phone] REASON FOR VISIT hepatic stenosis, hepc Encounters Encounter Location Date Provider Diagnosis [facility] [address] [facility] [address] [place] [phone] 09/04/2023 Caio Guerrero Plan Of Treatment Next Appt Details Provider Name:Caio Guerrero , 12/24/2024 09:00:00 AM, [address], [address], [place], [phone], Progress Notes * MALINDA ANNSDOB: 0 (44 yo M)Acc No.[id number]:09/04/2023 Progress Notes Patient: MAGNUS JUDD Provider: Corey Guerrero MD :1980 A ge:43 Y S ex:Male Date:09/04/2023 Address:[address] [place], [place] [phone] Pcp:Celina Hubbard Subjective: * Chief Complaints: * 1 . Hepatic stenosis, hepc. * Medical History: Objective: * Vitals: Assessment: Plan: * Treatment: * * The named appointment provid er may or may not be the originator of this progress note, and it is not deemed complete until electronically signed by the appointment provider. Sign off status: Pending * Provider: Corey Guerrero MD Date: 0 09/04/2023 Generated for Soto kennedy/Yolanda/Shadi on: 0 11/19/2024 08:21 AM EDT
--- NOTE | ~2024-11-19 | US_ITS ---
CLINICAL HISTORY: CHRONIC VIRAL HEP, RT UPPER QUAD PAIN, FATTY LIVER, DUODENAL ULCER US abdomen complete Comparison: 11/23/2022 Findings: The visualized pancreas is normal. The aorta and inferior vena cava are normal caliber. Liver measures 15 cm in length and demonstrates increased echogenicity. 15 x 15 x 13 mm subpleural echogenic anterior right hepatic lobe lesion was not seen on prior exam (nonvisualization of lesion on prior CT may possibly be technical in nature). Further characterization with hepatic protocol CT or MRI recommended. Right lobe length is 15 cm. There is no intrahepatic bile duct dilatation. The common duct is 6 mm in diameter. The gallbladder is normal. There is no sonographic Wilkins sign. The main portal vein is antegrade. The right kidney is 9 cm in length. The left kidney is 10.8 cm in length. Unremarkable kidneys. Limited splenic evaluation. Evaluated spleen is 7.7 cm in length and is unremarkable No ascites. IMPRESSION: 15 x 15 x 13 mm subpleural echogenic anterior right hepatic lobe lesion was not seen on prior exam (nonvisualization of lesion on prior CT may possibly be technical in nature). Further characterization with hepatic protocol CT or MRI recommended. Hepatic steatosis. This document has been electronically signed by: Nena Soto MD on 11/19/2024 12:14:36
--- OUTSIDE RECORDS SUMMARY | 2024-11-19 08:21 | XMS_ITS | Clinical Summary ---
Author Organization [facility] Address [address] [place] [address] Phone Care Team Providers Care Choker Setter Name Role Phone Physician, Pcp Unknown Primary [...] 86 04/26/2024 11:49 PM EST Temperature 36.7 C (98.1 F) 04/26/2024 11:49 PM EST Respiratory Rate 16 04/26/2024 11:49 PM EST [...] 02/17/1999 COVID-19 Vaccine (2023-2 5 season) 2023 Depression Screening 04/15/2024 Cholesterol Screening (Lipid Panel) 04/27/2024 HIV Screening 04/27/2024 Hepatitis C Screening 04/27/2024 Social Influencers of Health Screening 04/27/2024 Influenza Vaccine (#1) 2024 HIB Vaccines Aged Out No longer [...] 5 Years) and At-Risk Patients (6 to 49 Years) Aged Out No longer eligible b ased on patient's age to complete this topic RSV Immunization Patients Un rona 20 months Aged Out No longer eligible b ased on patient's age to complete this topic Varicella Vaccines Aged Out No longer eligible based on patient's age to complete this topic Insurance MEDICAID - [place] Care Teams Choker Setter Relationship Specialty Start Date End Date Physician, Pcp Unknown PCP - General 04/27/24
== END 2024-11-19 08:19 | disposition home or self-care (01) ==
LOC: HO.US 08:18
PROVIDERS: PCP Internal Medicine; Visit Provider Internal Medicine
DX: K26.9 Duodenal ulcer, unspecified as acute or chronic, without hemorrhage or perforation (principal); B18.9 Chronic viral hepatitis, unspecified; R10.11 Right upper quadrant pain
CPT/HCPCS: 76700

== ENCOUNTER → 2024-11-19 08:20 | Outpatient (BNV) | payer OTHER, SELFPAY | PROVIDERS: PCP Internal Medicine; Visit Provider Radiology Diagnostic Radiology | DX: K76.0 Fatty (change of) liver, not elsewhere classified (principal) | CPT/HCPCS: 76700 ==

== ENCOUNTER 2024-11-25 10:03 | Outpatient (REF) | payer OTHER, SELFPAY ==
--- OUTSIDE RECORDS SUMMARY | 2024-11-24 05:12 | XMS_ITS ---
Author Organization [facility] Address [address] [place] [address] Care Team Providers Care Fire Sprinkler Service Technician Name Role Phone Celian Hubbard Primary Care Provider Unavailab Caio Tubbs Unavailable [phone] REASON FOR VISIT LIver mass Problems Problem Type SNOMED Code ICD Code Onset Dates Problem Status W/U Status Risk Notes Problem Liver mass, right lobe (R16.0) Active confirmed Encounters Encounter Location Date Provider Diagnosis [facility] [address] [place] [address] 11/24/2024 Caio Guerrero Liver mass, right lobe R16.0 and Fatty liver K76.0 Assessments Encounter Date Diagnosis (ICD Code) Assessment Notes Treatment Notes Treatment Clinical Notes Section Notes 11/24/2024 Liver mass, right lobe (ICD-10 - R16.0) 11/24/2024 Fatty liver (ICD-10 - K76.0) Plan Of Treatment Pending Test Test Name Order Date BUN 11/24/2024 LIVER PROFILE 11/24/2024 CEA 11/24/2024 CBC w DIFF 11/24/2024 ALPHA-FETOPROTEIN,TUMOR MARKER MRI ABD W&WO CONTRAST 11/24/2024 Prothrombin Time INR 11/24/2024 Creatinine 11/24/2024 Next Appt Details Provider Name:Caio Guerrero , 12/24/2024 09:00:00 AM, [address], [address], [place], [address], Progress Notes * GEOVANNA ANNOB: 0 (44 yo M)Acc No.[id number]:11/24/2024 Patient: MAGNUS JUDD :1980 A ge:44 Y S ex:Male Address:[address] [place] [address] Subjective: * Chief Complaints: * L Iver mass * Medical History: * Surgical History: * Hospitalization/Major Diagno stic Procedure: * Medications: Objective: * Vitals: * Physical Examination: Assessment: * Assessment: 1. L iver mass, right lobe - R16.0 (Primary) 2 . F atty liver - K76.0 ? Plan: * Treatment: 2.?Fatty liver?LAB: BUN ?LAB: LIVER PROFILE ?LAB: CEA ?LAB: CBC w DIFF ?LAB: ALPHA-FETOPROTEIN,TUMOR MARKER ?LAB: Prothrombin Time INR ?LAB: Creatinine ?Imaging: MRI ABD W&WO CONTRAST* * Procedure Codes: * * Date:
--- OUTSIDE RECORDS SUMMARY | 2024-11-25 10:44 | XMS_ITS | Clinical Summary ---
Author Organization [facility] Address [address] [place] [address] Phone Care Team Providers Care Acid Purification Equipment Operator Name Role Phone Physician, Pcp Unknown Primary [...] topic Insurance MEDICAID - [place] Care Teams Acid Purification Equipment Operator Relationship Specialty Start Date End Date Physician, Pcp Unknown PCP - General 04/27/24
[2024-11-25 13:56] LABS: MANUAL DIFF FLAG NO
[2024-11-25 14:06] LABS: Hematocrit 41.8 % (42.0-52.0); Hemoglobin 14.4 g/dl (14.0-18.0); Imm Gran Abs Auto 0.01 X10*3/uL (0.00-0.03); Imm Gran Pct Auto 0.2 % (0.0-0.4); Lymphocytes Absolute Auto 1.7 X10*3/uL (1.2-4.9); Mean Corpuscular HGB Conc 34.4 g/dl (31.0-36.0); Mean Corpuscular Hemoglobin 28.6 pg (27.0-33.0); Mean Corpuscular Volume 83.1 fL (80.0-98.0); NRBC Abs Auto 0.000 X10*3/uL (0.0-0.012); NRBC Pct Auto 0.0 /100WBC (0.0-0.2); Platelet Count 316 X10*3/uL (160-400); Red Blood Count 5.03 X10*6/uL (4.60-5.80); White Blood Count 5.1 X10*3/uL (4.8-10.8)
[2024-11-25 14:11] LABS: INTERNATIONAL NORM RATIO 1.1 (0.9-1.1); Prothrombin Time 12.2 SEC (10.9-12.4)
[2024-11-25 14:34] LABS: Alanine Aminotransferase 30 U/L (0-40); Albumin Level 4.3 g/dL (3.5-5.0); Alkaline Phosphatase 158 U/L (39-117); Aspartate Amino Transferase 30 U/L (5-37); Blood Urea Nitrogen 13 mg/dL (9-16); Estimated Glomerular Filt Rate > 60; Total Protein 7.2 g/dL (6.5-8.0)
[2024-11-25 14:53] LABS: Carcinoembryonic Antigen < 1.73 ng/mL
== END 2024-11-25 10:04 | disposition home or self-care (01) ==
LOC: HO.10HDL 10:03
PROVIDERS: Visit Provider Internal Medicine
DX: K76.0 Fatty (change of) liver, not elsewhere classified (principal); R16.0 Hepatomegaly, not elsewhere classified
CPT/HCPCS: 36415; 80076; 82105; 82378; 82565; 84520; 85025; 85610

== ENCOUNTER 2024-12-08 10:13 | Outpatient (REF) | payer OTHER, SELFPAY ==
--- NOTE | ~2024-12-08 | MR_ITS ---
EXAMINATION: MR ABDOMEN WITHOUT THEN WITH IV CONTRAST HISTORY: LIVER LESION, RT LOBE, FATTY LIVER COMPARISON: Correlation is made with an abdominal ultrasound dated 725. TECHNIQUE: Axial in and out of phase T1-weighted gradient echo, axial diffusion weighted, and axial and coronal HASTE T2 with fat saturation images were obtained through the abdomen. Subsequently, fat suppressed axial and coronal T1-weighted images were obtained after the intravenous administration of 7 mL Gadavist. FINDINGS: The examination is somewhat limited by patient respiratory motion. Liver: There is a small focal area of signal loss in the liver on opposed phase imaging adjacent to the fissure for the ligamentum teres, compatible with steatosis. There is no enhancing liver mass. The hepatic and portal veins are patent. There is no intrahepatic biliary dilatation. Gallbladder/biliary tree: No gallstones are identified. The common bile duct is normal in caliber. No intraluminal filling defects are identified to suggest choledocholithiasis. Spleen: The spleen is unremarkable. Pancreas: The pancreas is unremarkable. There is no enhancing pancreatic mass. The pancreatic duct is normal in caliber. Adrenals: The adrenal glands are unremarkable. Kidneys: The right kidney is unremarkable. There is a subcentimeter cyst at the upper pole of the left kidney. There is no hydronephrosis. Lymph nodes: There is no retroperitoneal lymphadenopathy in the upper abdomen. Fluid: There is no ascites in the upper abdomen. Visualized bowel: The visualized small and large bowel loops are unremarkable in appearance. Visualized bones: The visualized bones demonstrate normal marrow signal intensity. MR/MR abdomen wo/w con IMPRESSION: Small area of focal steatosis adjacent to the fissure for the ligamentum teres. No suspicious liver abnormality is identified. Electronically signed by: Caio Brush MD 12/08/2024 11:21 AM EDT
--- OUTSIDE RECORDS SUMMARY | 2024-12-08 10:57 | XMS_ITS | Patient Health Record ---
Author Organization [facility] Address [address] [place] [address] Care Team Providers Care Farmworker Vegetable Name Role Phone Ceferinosarah Celina Primary Care Provider UnavailCaio Boogie Unavailable [phone] Allergies No Known Allergies Results Component Value Reference Range Notes Liver Panel (Not yet reviewe d by provider) Interpretation: Performing Lab:[facility], [address] [place] [phone] Notes/Report: Bilirubin Total 0.4 0.0-1.0 mg/dL Bilirubin Direct 0.1 0.0-0.5 mg/dL Aspartate Amino Transferase 24 5-37 U/L Alanine Aminotransferase 48 0-40 U/L Total Protein 7.5 6.5-8.0 g/dL Albumin Level 4.2 3.5-5.0 g/dL Alkaline Phosphatase 161 39-117 U/L Complete Blood Count Auto Di ff Reviewed date:11/25/2024 06:08:08 PM Interpretation: Performing Lab:[facility], [address] [place] [phone] Notes/Report: White Blood Count 5.1 4.8-10.8 X10*3/uL Red Blood Count 5.03 4.60-5.80 X10*6/uL Hemoglobin 14.4 14.0-18.0 g/dl Hematocrit 41.8 42.0-52.0 % Mean Corpuscular Volume 83.1 80.0-98.0 fL Mean Corpuscular Hemoglobin 28.6 27.0-33.0 pg Mean Corpuscular HGB Conc 34.4 31.0-36.0 g/dl Red Cell Distribution Width 13.7 11.0-16.0 % Platelet Count 316 160-400 X10*3/uL Mean Platelet Volume 9.6 9.4-12.4 fL Neutrophils Percent Auto 54.9 45-73 % Imm Gran Pct Auto 0.2 0.0-0.4 % Lymphocytes Percent Auto 34.1 20-40 % Monocytes Percent Auto 9.6 2-11 % Eosinophils Percent Auto 1.0 0-4 % Basophils Percent Auto 0.2 0-2 % NRBC Pct Auto 0.0 0.0-0.2 /100WBC Neutrophils Absolute Auto 2.8 2.0-8.3 x10*3/u L Imm Gran Abs Auto 0.01 0.00-0.03 X10*3/uL Lymphocytes Absolute Auto 1.7 1.2-4.9 X10*3/u L Monocytes Absolute Auto 0.5 0.1-1.2 X10*3/uL Eosinophils Absolute Auto 0.1 0.0-0.4 X10*3/u L Basophils Absolute Auto 0.0 0.0-0.2 X10*3/uL NRBC Abs Auto 0.000 0.0-0.012 X10*3/uL Prothrombin Time INR Reviewed date:11/25/2024 06:07:53 PM Interpretation: Performing Lab:[address] [phone] Notes/Report: Prothrombin Time 12.2 10.9-12.4 SEC INTERNATIONAL NORM RATIO 1.1 0.9-1.1 INTERNATIONAL NORMALIZED RATIO (INR) REFERENCE RANGES Reference Range For patients not on anticoagulant therapy: 0.9 - 1.1 INR ranges for oral anticoagulant therapy: For prevention and treatment of venous thrombosis and pulmonary embolism: 2.0 - 3.0 For acute myocardial infarction with aspirin therapy: 2.0 - 3.0 For acute myocardial infarction without aspirin therapy: 3.0 - 4.0 For patients with mechanical prosthetic heart valves: 2.5 - 3.5 Liver Panel Reviewed date:11/25/2024 06:07:47 PM Interpretation: Performing Lab:[address] [phone] Notes/Report: Bilirubin Total 0.6 0.0-1.0 mg/dL Bilirubin Direct 0.3 0.0-0.5 mg/dL Aspartate Amino Transferase 30 5-37 U/L Alanine Aminotransferase 30 0-40 U/L Total Protein 7.2 6.5-8.0 g/dL Albumin Level 4.3 3.5-5.0 g/dL Alkaline Phosphatase 158 39-117 U/L Blood Urea Nitrogen Reviewed date:11/25/2024 06:07:37 PM Interpretation: Performing Lab:[facility], [address] [place] [phone] Notes/Report: Blood Urea Nitrogen 13 9-16 mg/dL Creatinine Reviewed date:11/25/2024 06:07:30 PM Interpretation: Performing Lab:[address] [phone] Notes/Report: Creatinine 0.68 0.5-1.4 mg/dL Estimated Glomerular Filt Rate > 60 Chronic Kidney Disease: Estimated GFR < 60 mL/min/1.73m2 Severe Kidney Disease: Estimated GFR < 15 mL/min/1.73m2 Carcinoembryonic Antigen Reviewed date:11/25/2024 06:07:19 PM Interpretation: Performing Lab:[address] [phone] Notes/Report: Carcinoembryonic Antigen < 1.73 CEA Reference Range: 93.4% Non-Smokers = 0.0-3.0 ng/mL 95.6% Smokers = 0.0-5.0 ng/mL CEA Methodology: Lerma Alinity i Chemiluminescent Microparticle Immunoassay (CMIA) CEA testing can have significant value in monitoring of patients with diagnosed malignancies in whom changing concentrations of CEA are observed. Values obtained with different assay methods cannot be used interchangeably. Alpha Fetoprotein Reviewed date:11/29/2024 10:33:36 PM Interpretation: Performing Lab:[address] [phone] Notes/Report: Alpha Fetoprotein 5.7 <6.1 ng/mL This test was performed using the [place] Timmy chemiluminescent method. Values obtained from different assay methods cannot be used interchangeably. AFP levels, regardless of value, should not be interpreted as absolute evidence of the presence or absence of disease. THIS TEST WAS PERFORMED AT: [facility] [address] [place] [phone] GURWINDER GARCIA MD Reason For Referral No Information Medications Medication SIG (Take, Route, Frequency, Duration) Notes Start Date End Date Status Atorvastatin Calcium 40 MG 1 tablet Oral ly Once a day Active Omeprazole 40 MG 1 capsule 1/2 to 1 h our before morning meal Orally Once a day for 30 day(s) 06/03/2024 Active Social History Tobacco Use: Social History Observation Description Date Details (start date - stop date) Former Smoker NA - NA Tobacco Use/Smoking Question Answer Notes Patient is a former smoker How long has it been since you last smoked? 1-3 months AUDIT-C (Standard) Question Answer Notes Did you have a drink containing alcohol in the p ast year? No Points 0 Interpretation Negative Section Notes: Stopped smoking in summer; denies alcohol use Stopped smoking in summer; denies alcohol use Problems Problem Type SNOMED Code ICD Code Onset Dates Problem Status W/U Status Risk Notes Problem Duodenitis (16515855) Duodenitis (K29.80) Active confirmed Problem 572407829 Elevated liver function tests (R79.89) Active confirmed Problem 506762975 Fatty liver (K76.0) Active confirmed Problem Duodenal ulcer (43477051) Duodenal ulcer (K26.9) Active confirmed Problem 530729730 Gastroesophageal reflux disease, unspecified whether esophagitis present (K21.9) Active confirmed Problem Large liver (71755289) Liver mass, right lobe (R16.0) Active confirmed Vital Signs Blood pressure diastolic 11 mm Hg 07/07/2024 Height 66 in 07/07/2024 Blood pressure systolic 111 mm Hg 07/07/2024 Weight 193 lbs 07/07/2024 BMI 31.15 kg/m2 07/07/2024 Encounters Encounter Location Date Provider Diagnosis [facility] [address] [place] [phone] 12/24/2023 Caio Guerrero Fatty liver K76.0 ; Elevated liver function tests R79.89 ; Gastroesophageal reflux disease, unspecified whether esophagitis present K21.9 and Duodenal ulcer K26.9 [facility] [address] [place] [phone] 07/07/2024 Caio Guerrero Fatty liver K76.0 ; Gastroesophageal reflux disease, unspecified whether esophagitis present K21.9 and Elevated liver function tests R79.89 [facility] [address] [place] [address] 12/29/2023 Caio Guerrero [facility] [address] [place] [address] 06/03/2024 Caio Guerrero [facility] [address] [place] [address] 11/24/2024 Caio Guerrero Liver mass, right lo be R16.0 and Fatty liver K76.0 Assessments Encounter Date Diagnosis (ICD Code) Assessment Notes Treatment Notes Treatment Clinical Notes Section Notes 12/24/2023 Elevated liver function tests (ICD-10 - [...] to keep you advised of his progress. 07/07/2024 Fatty liver (ICD-10 - K76.0) Watch diet and exercise to help the fatty liver and lose weight Overall, Magnus appears well. His reflux seems to be stable and clinically improved on the higher dose of the omeprazole. We did review that weight gain and dietary indiscretion will lead to worsening reflux and he needs to be very careful and monitor both of those issues carefully. Did review that having stopped smoking most likely contributed to his weight gain as well, but hopefully that will leveled off and he can start to eat better, exercise, and lose some weight. I did advise him to continue his omeprazole daily. We did review his fatty liver and the most recent liver enzymes are not particularly worrisome at all. I do not think any further evaluation of that is required at this time. We did review that obviously weight gain and dietary indiscretion will adversely affect that as well. Hopefully by being on the statin to lower his lipids will help with his fatty liver also. I will plan to see him in December for further review. At that time I will plan to schedule him for a screening colonoscopy after his 45th birthday later in the year. I did advise him to contact me prior to that visit if he has any problems or questions I can be of assistance with. Magnus was comfortable with this plan. Thank you again for allowing me to participate in Magnus's care. I shall continue to keep you advised of his progress.. 11/24/2024 Fatty liver (ICD-10 - K76.0) 11/24/2024 Liver mass, right lobe (ICD-10 - R16.0) 12/24/2023 Gastroesophageal reflux disease, unspecified whether esophagitis [...] to keep you advised of his progress. 07/07/2024 Gastroesophageal reflux disease, unspecified whether esophagitis present (ICD-10 - K21.9) Continue the 40mg omeprazole every day Overall, Magnus appears well. His reflux seems to be stable and clinically improved on the higher dose of the omeprazole. We did review that weight gain and dietary indiscretion will lead to worsening reflux and he needs to be very careful and monitor both of those issues carefully. Did review that having stopped smoking most likely contributed to his weight gain as well, but hopefully that will leveled off and he can start to eat better, exercise, and lose some weight. I did advise him to continue his omeprazole daily. We did review his fatty liver and the most recent liver enzymes are not particularly worrisome at all. I do not think any further evaluation of that is required at this time. We did review that obviously weight gain and dietary indiscretion will adversely affect that as well. Hopefully by being on the statin to lower his lipids will help with his fatty liver also. I will plan to see him in December for further review. At that time I will plan to schedule him for a screening colonoscopy after his 45th birthday later in the year. I did advise him to contact me prior to that visit if he has any problems or questions I can be of assistance with. Magnus was comfortable with this plan. Thank you again for allowing me to participate in Magnus's care. I shall continue to keep you advised of his progress.. 12/24/2023 Duodenal ulcer (ICD-10 - K26.9) Overall, [...] to keep you advised of his progress. 07/07/2024 Elevated liver function tests (ICD-10 - R79.89) Overall, Magnus appears well. His reflux seems to be stable and clinically improved on the higher dose of the omeprazole. We did review that weight gain and dietary indiscretion will lead to worsening reflux and he needs to be very careful and monitor both of those issues carefully. Did review that having stopped smoking most likely contributed to his weight gain as well, but hopefully that will leveled off and he can start to eat better, exercise, and lose some weight. I did advise him to continue his omeprazole daily. We did review his fatty liver and the most recent liver enzymes are not particularly worrisome at all. I do not think any further evaluation of that is required at this time. We did review that obviously weight gain and dietary indiscretion will adversely affect that as well. Hopefully by being on the statin to lower his lipids will help with his fatty liver also. I will plan to see him in December for further review. At that time I will plan to schedule him for a screening colonoscopy after his 45th birthday later in the year. I did advise him to contact me prior to that visit if he has any problems or questions I can be of assistance with. Magnus was comfortable with this plan. Thank you again for allowing me to participate in Magnus's care. I shall continue to keep you advised of his progress.. 12/24/2023 Other We will set up a [...] to keep you advised of his progress. 07/07/2024 Other We will schedule a colonoscopy for you at the December office visit Overall, Magnus appears well. His reflux seems to be stable and clinically improved on the higher dose of the omeprazole. We did review that weight gain and dietary indiscretion will lead to worsening reflux and he needs to be very careful and monitor both of those issues carefully. Did review that having stopped smoking most likely contributed to his weight gain as well, but hopefully that will leveled off and he can start to eat better, exercise, and lose some weight. I did advise him to continue his omeprazole daily. We did review his fatty liver and the most recent liver enzymes are not particularly worrisome at all. I do not think any further evaluation of that is required at this time. We did review that obviously weight gain and dietary indiscretion will adversely affect that as well. Hopefully by being on the statin to lower his lipids will help with his fatty liver also. I will plan to see him in December for further review. At that time I will plan to schedule him for a screening colonoscopy after his 45th birthday later in the year. I did advise him to contact me prior to that visit if he has any problems or questions I can be of assistance with. Magnus was comfortable with this plan. Thank you again for allowing me to participate in Magnus's care. I shall continue to keep you advised of his progress.. Plan Of Treatment Pending Test Test Name Order Date BUN 11/24/2024 LIVER PROFILE 05/14/2023 LIVER PROFILE 12/24/2023 LIVER PROFILE 11/24/2024 GGT 05/14/2023 IRON + IBC (FE) 05/14/2023 CEA 11/24/2024 CBC w DIFF 11/24/2024 HEPATITIS B PROFILE 05/14/2023 ALPHA-FETOPROTEIN,TUMOR MARKER MRI ABD W&WO CONTRAST 11/24/2024 FLUOR. ANTINUCLEAR AB SCREEN (MAX) 04/17 Prothrombin Time INR 11/24/2024 Liver Panel 12/24/2023 Creatinine 11/24/2024 Future Test Test Name Order Date UPPER GI ENDOSCOPY 05/14/2023 Next Appt Details Provider Name:Caio Mueller Yolanda , 12/24/2024 09:00:00 AM, [address], [address], [place], [address], Insurance Providers Payer Name Payer Address Payer Phone Subscriber Number Group Number Insured Name Patient Relationship to Insured Coverage Start Date Coverage End Date [facility] [address] [place] [address] [id number] MAGNUS ANN Self - patient is the insured Medical (General) History Medical History History ICD Code Denies LA,DM,CVA,Lung disease,renal dise ase Fatty liver with elevated [...] esophageal biopsies were negative for Mccauley's esophagus hypercholesterolemia Surgical History Surgery Date(Month/Year)
--- OUTSIDE RECORDS SUMMARY | 2024-12-08 10:57 | XMS_ITS | Clinical Summary ---
Author Organization [facility] Address [address] [place] [address] Phone Care Team Providers Care Terminal System Operator Name Role Phone Physician, Pcp Unknown [...] topic Insurance MEDICAID - [place] Care Teams Terminal System Operator Relationship Specialty Start Date End Date Physician, Pcp Unknown PCP - General 04/27/24
== END 2024-12-08 10:14 | disposition home or self-care (01) ==
LOC: HO.MRI 10:13
PROVIDERS: PCP Internal Medicine; Visit Provider Internal Medicine
DX: R16.0 Hepatomegaly, not elsewhere classified (principal); K76.0 Fatty (change of) liver, not elsewhere classified
CPT/HCPCS: 74183; A9585

== ENCOUNTER → 2024-12-08 10:25 | Outpatient (BNV) | payer OTHER, SELFPAY | PROVIDERS: PCP Internal Medicine; Visit Provider Radiology Diagnostic Radiology | DX: K76.0 Fatty (change of) liver, not elsewhere classified (principal) | CPT/HCPCS: 74183 ==

== ENCOUNTER 2025-04-05 08:25 | Day surgery (SDC) | payer OTHER, SELFPAY ==
--- OUTSIDE RECORDS SUMMARY | 2023-09-04 09:40 | XMS_ITS ---
Author Organization [facility] Address [address] [place] [phone] Care Team Providers Care Oven Press Tender Name Role Phone Celina Hubbard Primary Care Provider Unavailab Caio Tubbs [phone] REASON FOR VISIT hepatic stenosis, hepc Encounters Encounter Location Date Provider Diagnosis [facility] [address] [place] [phone] 09/04/2023 Caio Guerrero Plan Of Treatment Next Appt Details Provider Name:Caio Guerrero , 04/05/2025 10:30:00 AM, [address] [place] [address] , [place], [place], [phone], Progress Notes * GEOVANNA ANNOB: 0 (45 yo M)Acc No.[id number]:09/04/2023 Progress Notes Patient: MAGNUS JUDD Provider: Corey Guerrero MD :1980 A ge:43 Y S ex:Male Date:09/04/2023 Address:[address] [place], [place] [phone] Pcp:Celina Hubbard Subjective: * Chief Complaints: * H epatic stenosis, hepc * The named appointment provid er may or may not be the originator of this progress note, and it is not deemed complete until electronically signed by the appointment provider. Sign off status: Pending * Provider: Corey Guerrero MD Date: 0 09/04/2023 Generated for Soto kennedy/Yolanda/Shadi on: 1 05/04/2024 05:56 PM EST
--- OUTSIDE RECORDS SUMMARY | 2025-03-04 17:57 | XMS_ITS | Clinical Summary ---
Author Organization [facility] Address [address] [place] [address] Phone Care Team Providers Care Terrazzo Mechanic Helper Name Role Phone Physician, Pcp Unknown Primary [...] Health Maintenance Due Date Last Done Comments Colorectal Cancer Screening: Colonoscopy 1980 DTaP,Tdap,and Td Vaccines (1 - Tdap) 02/17/1999 Hepatitis B Vaccines (1 of 3 - 19+ 3-dose series) 02/17/1999 HPV Vaccines (1 - 3-dose SCD M series) 02/17/2007 Depression Screening 04/15/2024 Cholesterol Screening (Lipid Panel) 04/27/2024 HIV Screening 04/27/2024 Hepatitis C Screening 04/27/2024 Social Influencers of Health Screening 04/27/2024 COVID-19 Vaccine ( - 2024-2 6 season) 2024 Influenza Vaccine (#1) 2024 RSV Immunization Adult Patie nts (1 - 1-dose 75+ series) 02/17/2055 HIB Vaccines Aged Out No longer eligi [...] topic Insurance MEDICAID - [place] Care Teams Terrazzo Mechanic Helper Relationship Specialty Start Date End Date Physician, Pcp Unknown PCP - General 04/27/24
--- NOTE | 2025-04-01 11:45 | HO.ANESPROP2 ---
Documented by User: Dia Logan NP 04/01/25 11:46 HPI - Anesthesia Eval Consult details Narrative: 45yo M for Colonoscopy [facility] Active Problems Active Problems: All Active Problems Balanitis (Acute) Physical exam, annual (Acute) Hepatic steatosis (Acute) Tobacco use (Acute) Hepatitis C (Acute) Past Medical History Medical History Hypercholesteremia Fatty liver HLD (hyperlipidemia) Hepatitis C GERD (gastroesophageal reflux disease) Family History Family history of problems with anesthesia: No Surgical History Surgical History History of esophagogastroduodenoscopy (EGD) History of Problems with Anesthesia: No Social History Social History Housing: House Patient Tobacco Use Status: Current everyday Tobacco user Tobacco use type: Cigarette Cigarette Packs Per Day: 1 Cigarettes Per Day: 6 Years Smoked: +20 Use of substances other than those prescribed or required for medical reasons: No Are you DNR?: No Advance Directives: No Advance Directives Information Provided: Yes service: No Current occupational status: employed Cognitive needs: No Hearing needs: No Vision needs: No Meds Allergies Allergy/AdvReac Type Severity Reaction Status Date / Time No Known Allergies (No Known Allergy Verified 04/05/25 08:37 Allergies*) Home Medications ?Medication ?Instructions ?Recorded ?Confirmed ?Last Taken ?Type atorvastatin 40 mg tablet 40 mg PO DAILY 04/01/25 04/05/25 Unknown History omeprazole 20 mg capsule,delayed 20 mg PO QAM 04/01/25 04/05/25 Unknown History release Assessment and Plan Assessment Anesthesia Assessment: Chart Reviewed Final Anesthetic Review Family History of Problems with Anesthesia: No History of Problems with Anesthesia: No Documented by User: Steve Avila MD 04/05/25 09:35 PMFSH Past Medical History Medical History Hypercholesteremia Fatty liver HLD (hyperlipidemia) Hepatitis C GERD (gastroesophageal reflux disease) Cognitive capacity: normal Functional capacity: independent ambulation Surgical History Surgical History History of esophagogastroduodenoscopy (EGD) Social History Social History Housing: House Patient Tobacco Use Status: Current everyday Tobacco user Tobacco use type: Cigarette Cigarette Packs Per Day: 1 Cigarettes Per Day: 6 Years Smoked: +20 Use of substances other than those prescribed or required for medical reasons: No Are you DNR?: No Advance Directives: No Advance Directives Information Provided: Yes service: No Current occupational status: employed Cognitive needs: No Hearing needs: No Vision needs: No Meds Allergies Allergy/AdvReac Type Severity Reaction Status Date / Time No Known Allergies (No Known Allergy Verified 04/05/25 08:37 Allergies*) Home Medications ?Medication ?Instructions ?Recorded ?Confirmed ?Last Taken ?Type atorvastatin 40 mg tablet 40 mg PO DAILY 04/01/25 04/05/25 Unknown History omeprazole 20 mg capsule,delayed 20 mg PO QAM 04/01/25 04/05/25 Unknown History release Exam Exam Date and Time: normal Airway Mallampati Class: II TM Dist: >3cm Neck ROM: Full Loose/Missing/Broken Teeth: No Heart: normal Lungs: normal Other: normal Assessment and Plan Assessment Anesthesia Assessment: Anesthesia Plan Discussed and Smoking Cess. Discussed Final Anesthetic Review NPO: Yes ASA Class: II Final Preanesthetic Review: No Changes in Pt Med Stat, Meds/Allgs Chart Reviewed, Consent Obtained/Reviewed and Anes Risks/Benef Reviewed Patient Risk: Intermediate Procedure Risk: Low Anesthetic Plan Anesthetic Plan: MAC: Disposition: Standard PACU
[2025-04-01 14:53] VITALS: BMI 26.0
[2025-04-05 08:32] VITALS: BMI 26.5
[2025-04-05 08:49] VITALS: BP 112/78; PULSE 94; RESP 14; TEMP 36.7; O2SAT 96
[2025-04-05] MEDS: Lactated Ringers 1,000 ML 100 ML IVCONT (08:56)
[2025-04-05 10:45] VITALS: BP 103/62; PULSE 82; RESP 14; TEMP 36.1; O2SAT 94
--- NOTE | 2025-04-05 10:49 | PM.OP ---
Brief Operative Note Date of Service: 04/05/25 Pre-op diagnosis: Screening Post-op diagnosis: other (Internal hemorrhoids) Procedure: Colonoscopy to the cecum Surgeon: Caio Guerrero MD Anesthesia: MAC Was an Network Systems Engineer used for this Procedure?: No Estimated blood loss (mL): 0 Pathology: none sent Condition: stable Disposition: PACU
[2025-04-05 11:00] VITALS: BP 103/62; PULSE 81; RESP 14; O2SAT 94
[2025-04-05 11:06] VITALS: BP 121/85; PULSE 75; RESP 15; TEMP 36.1; O2SAT 100
--- NOTE | 2025-04-05 11:17 | PC.NURSE ---
PATIENT DID NOT WANT AN BEHAVIORAL HEALTH THERAPIST. SPEAKS/UNDERSTANDS [place]URKS AND [place] WELL.
--- NOTE | 2025-04-06 10:03 | OP_ITS ---
DATE OF SERVICE: 04/05/2025 SURGEON: Caio Guerrero MD INDICATIONS: The patient presents for evaluation of colorectal cancer screening. Full consent has been obtained from him for this, including risks of bleeding and perforation. PREOPERATIVE DIAGNOSIS: Colorectal cancer screening. POSTOPERATIVE DIAGNOSIS: PROCEDURE PERFORMED: Colonoscopy to the cecum. ESTIMATED BLOOD LOSS: COMPLICATIONS: ANESTHESIA: Medication used, monitored anesthesia care. ASSISTANTS: SPECIMENS: POSTOPERATIVE DIAGNOSES: Colorectal cancer screening, internal hemorrhoids. DESCRIPTION OF PROCEDURE: The patient was placed in the left lateral decubitus position. The digital rectal exam revealed no abnormalities. The Olympus video pediatric colonoscope was entered into the rectum and advanced easily to the cecum. Once in the cecum, I did identify normal-appearing cecal pouch with appendiceal orifice, and a normal-appearing ileocecal valve. The entire cecum and ileocecal valve appeared normal. The scope was slowly withdrawn assessing all mucosal surfaces carefully. Preparation was excellent. I did not visualize any sign of polyps, colitis, nor angiodysplasia. In the rectum, scope was retroflexed visualizing some internal hemorrhoids, but no other pathology. The rectal mucosa appeared normal. Scope was straightened and withdrawn from the patient. He tolerated the procedure well and was returned to the recovery area in stable condition. IMPRESSION: Internal hemorrhoids, otherwise normal colonoscopy. PLAN: Given today's negative exam and no family history of colon cancer, I would recommend a repeat colonoscopy in 10 years for further screening. He could see me otherwise on a p.r.n. basis. He does continue omeprazole, which is working well for the reflux. I do not think he needs any further evaluation of that given the upper endoscopy in the past. I did advise him to continue omeprazole daily. His fatty liver also seems to be stable after he lost weight with a normal liver profile earlier this year other than alkaline phosphatase of 158. A recent MRI of the liver was negative for any suspicious liver lesions and was only consistent with fatty liver. He will see me again as needed. This has been discussed with his . MD STACEY Melton/MACY / [id number] MTDD
== END 2025-04-05 11:17 | disposition home or self-care (01) ==
PROVIDERS: PCP Internal Medicine; Visit Provider Internal Medicine
PROC: 0DJD8ZZ Inspection of Lower Intestinal Tract, Via Natural or Artificial Opening Endoscopic (ICD-10-PCS; CPT 45378; principal; 2025-04-05 09:30)
DX: Z12.11 Encounter for screening for malignant neoplasm of colon (principal); R16.0 Hepatomegaly, not elsewhere classified; K21.9 Gastro-esophageal reflux disease without esophagitis; K64.8 Other hemorrhoids
CPT/HCPCS: 45378; J2003; J2704; J3010